=== PATIENT | male | born 1955 | race Caucasian/White ===

== ENCOUNTER 2021-04-21 10:34 | Inpatient (IN) ==
[2021-04-21] MEDS ORDERED: LABETALOL HCL IV 5 MG/ML 20ML IV STA ×2 (10:47→11:18)
[2021-04-21] MEDS ORDERED: OPTIRAY 320 125ml IV ONE ×2 (10:56→13:22)
--- NOTE | 2021-04-21 10:58 | Emergency Department Note ---
History of Present Illness General Chief complaint: Eye Problems Stated complaint: LOSS OF VISION IN R EYE/REFERRED BY EYE DR Time Seen by Provider: 04/21/21 10:44 Source: patient and RN notes reviewed Mode of arrival: ambulatory Limitations: no limitations History of Present Illness Provider Complaint: + vision change (R eye pain) Duration: + constant Location: + right eye Eye Symptoms: + decreased vision (woke up at 7 am and noticed decreased vision) Place: + home Associated symptoms: + none HPI Narrative: Went to bed ok at 10 pm, woke up at 7 am with decreased vision in R eye. Hasn't seen a doctor in years. No daily meds Smokes 3 cigarettes daily Home Medications Medication Instructions Recorded Confirmed Type No Known Home Medications 04/21/21 04/21/21 History Allergies Allergy/AdvReac Type Severity Reaction Status Date / Time No Known Allergies Allergy Unverified 12/11/11 09:54 Past Med/Surg History Medical History No significant past medical history Surgical History History of thoracentesis Family History Mother Alive and well Father Alive and well Denies family history of Diabetes Myocardial infarction Cancer Stroke Social History Smoking Status: Current some day smoker Years Smoked: 30; Cigarettes Per Day: 5; Hx Alcohol Use: Yes Alcohol type: beer Alcohol type Comment: 3 beers day Hx Substance Use: No Preferred Language: [place] Communication Ability: Effective Oil [employer] Required: No Beliefs That Will Affect Care: None marital status: Single Current Living Situation: Significant Other Other Information That Helps Us Care for You: No Feels Safe at Home: Yes Safety Concerns: Feels Safe At This Time Assistive Devices: None Review of Systems See HPI for pertinent positives & negatives. and A total of 10 systems reviewed and were otherwise negative Physical Exam Vital Signs: Vital Signs - 24 hr 04/21/21 10:37 04/21/21 11:04 04/21/21 11:09 Temperature 36.5 C Temperature Source Temporal Artery Sc an Pulse Rate 111 H 99 H Pulse Rate [Left A pical] 123 H Respiratory Rate 18 20 16 Respiratory Effort / Characteristics Non-Labored Non-Labored Sponta neous Respiratory Depth Normal Normal Respiratory Patter n Regular Blood Pressure 257/112 H 223/127 H Blood Pressure [Le ft Arm] 259/151 H Blood Pressure Cece n 160 159 Blood Pressure Cece n [Left Arm] 187 Blood Pressure Pos ition [Left Arm] Lying Pulse Oximetry 97 93 92 Oxygen Delivery Me thod Room Air Room Air Sepsis Recent Feve r Within 48 Hours No Sepsis New/Unexpla ined Change in Men zain Status No Sepsis Action Take n by Nursing No Action Required 04/21/21 11:10 04/21/21 11:15 04/21/21 11:20 Temperature Temperature Source Pulse Rate 100 H 102 H 101 H Pulse Rate [Left A pical] Respiratory Rate 20 18 17 Respiratory Effort / Characteristics Respiratory Depth Respiratory Patter n Blood Pressure 228/117 H 234/138 H 227/130 H Blood Pressure [Le ft Arm] Blood Pressure Cece n 154 170 162 Blood Pressure Cece n [Left Arm] Blood Pressure Pos ition [Left Arm] Pulse Oximetry 93 93 93 Oxygen Delivery Me thod Sepsis Recent Feve r Within 48 Hours Sepsis New/Unexpla ined Change in Men zain Status Sepsis Action Take n by Nursing 04/21/21 11:25 04/21/21 11:30 04/21/21 11:35 Temperature Temperature Source Pulse Rate 105 H 91 H 90 Pulse Rate [Left A pical] Respiratory Rate 18 20 22 Respiratory Effort / Characteristics Respiratory Depth Respiratory Patter n Blood Pressure 235/130 H 202/131 H 203/117 H Blood Pressure [Le ft Arm] Blood Pressure Cece n 165 154 145 Blood Pressure Cece n [Left Arm] Blood Pressure Pos ition [Left Arm] Pulse Oximetry 93 91 92 Oxygen Delivery Me thod Sepsis Recent Feve r Within 48 Hours Sepsis New/Unexpla ined Change in Men zain Status Sepsis Action Take n by Nursing 04/21/21 11:40 04/21/21 11:45 04/21/21 11:50 Temperature Temperature Source Pulse Rate 92 H 93 H 93 H Pulse Rate [Left A pical] Respiratory Rate 22 21 20 Respiratory Effort / Characteristics Respiratory Depth Respiratory Patter n Blood Pressure 206/117 H 211/118 H 211/116 H Blood Pressure [Le ft Arm] Blood Pressure Cece n 146 149 147 Blood Pressure Cece n [Left Arm] Blood Pressure Pos ition [Left Arm] Pulse Oximetry 92 92 93 Oxygen Delivery Me thod Sepsis Recent Feve r Within 48 Hours Sepsis New/Unexpla ined Change in Men zain Status Sepsis Action Take n by Nursing 04/21/21 11:55 04/21/21 12:00 04/21/21 12:05 Temperature Temperature Source Pulse Rate 94 H 95 H 92 H Pulse Rate [Left A pical] Respiratory Rate 18 19 17 Respiratory Effort / Characteristics Respiratory Depth Respiratory Patter n Blood Pressure 207/117 H 216/120 H 194/109 H Blood Pressure [Le ft Arm] Blood Pressure Cece n 147 152 137 Blood Pressure Cece n [Left Arm] Blood Pressure Pos ition [Left Arm] Pulse Oximetry 92 93 92 Oxygen Delivery Me thod Sepsis Recent Feve r Within 48 Hours Sepsis New/Unexpla ined Change in Men zain Status Sepsis Action Take n by Nursing 04/21/21 12:10 04/21/21 12:15 04/21/21 12:27 Temperature Temperature Source Pulse Rate 92 H 95 H 91 H Pulse Rate [Left A pical] Respiratory Rate 20 20 20 Respiratory Effort / Characteristics Respiratory Depth Respiratory Patter n Blood Pressure 197/105 H 224/125 H 209/115 H Blood Pressure [Le ft Arm] Blood Pressure Cece n 135 158 146 Blood Pressure Cece n [Left Arm] Blood Pressure Pos ition [Left Arm] Pulse Oximetry 93 92 93 Oxygen Delivery Me thod Sepsis Recent Feve r Within 48 Hours Sepsis New/Unexpla ined Change in Men zain Status Sepsis Action Take n by Nursing 04/21/21 12:30 04/21/21 12:40 Temperature Temperature Source Pulse Rate 93 H 85 Pulse Rate [Left A pical] Respiratory Rate 24 20 Respiratory Effort / Characteristics Respiratory Depth Respiratory Patter n Blood Pressure 197/113 H 184/101 H Blood Pressure [Le ft Arm] Blood Pressure Cece n 141 128 Blood Pressure Cece n [Left Arm] Blood Pressure Pos ition [Left Arm] Pulse Oximetry 92 92 Oxygen Delivery Me thod Sepsis Recent Feve r Within 48 Hours Sepsis New/Unexpla ined Change in Men zain Status Sepsis Action Take n by Nursing Physical Exam: PHYSICAL EXAM: Vital signs reviewed. Noted to be markedly HTN General: Well-appearing 65 yo male, in no significant distress. HEENT: No scleral icterus, PERRLA, neck supple. Atraumatic. Limited funduscopic exam performed bilaterally and within normal limits. Patient does have difficulty tracking with extreme left peripheral gaze. Cardiovascular: tachycardic rate, regular rhythm, no extra sounds. Pulmonary: Clear to auscultation bilaterally, normal work of breathing. Abdomen: Soft, nontender, nondistended, positive bowel sounds. Musculoskeletal: Atraumatic, no peripheral edema. Neurologic: Patient awake alert and oriented x 3, speech is clear. Equal strength in all 4 extremities. Cranial nerves II through XII are grossly intact. Skin: Warm, dry, no rash Course Administered Medications Folic Acid (Folic Acid 1 Mg Tab) 1 mg PO [facility] Stop: 05/21/21 14:35 Last Admin: 04/21/21 15:35 Dose: 1 mg Documented by: [id number] Nicardipine HCl 25 mg/ Sodium (Chloride) 250 mls @ 25 mls/hr IV .Q10H [facility]; Protocol Stop: 05/21/21 12:59 Last Titration: 04/21/21 14:58 Dose: 2.5 mg/hr, 25 mls/hr Documented by: [id number] Titration: 04/21/21 14:01 Dose: 0 mg/hr, 0 mls/hr Documented by: [id number] Admin: 04/21/21 13:41 Dose: 5 mg/hr, 50 mls/hr Documented by: [id number] Cosigned by: [id number] Thiamine HCl (Thiamine Hcl 100 Mg Tab) 100 mg PO [facility] Stop: 05/21/21 14:35 Last Admin: 04/21/21 15:35 Dose: 100 mg Documented by: [id number] Discontinued Medications Aspirin (Aspirin Chew 324 Mg) 324 mg PO NOW STA Stop: 04/21/21 12:17 Last Admin: 04/21/21 12:27 Dose: 324 mg Documented by: [id number] Ioversol (Optiray 320 125ml) 120 ml IV ONCE ONE Stop: 04/21/21 10:57 Last Admin: 04/21/21 10:57 Dose: 120 ml Documented by: [id number] Ioversol (Optiray 320 125ml) 120 ml IV ONCE ONE Stop: 04/21/21 13:23 Last Admin: 04/21/21 13:22 Dose: 120 ml Documented by: [id number] Labetalol HCl (Labetalol Hcl Iv 5 Mg/Ml 20ml) 10 mg IV NOW STA Stop: 04/21/21 10:48 Last Admin: 04/21/21 11:05 Dose: 10 mg Documented by: [id number] Cosigned by: [id number] Labetalol HCl (Labetalol Hcl Iv 5 Mg/Ml 20ml) 20 mg IV NOW STA Stop: 04/21/21 11:19 Last Admin: 04/21/21 11:23 Dose: 20 mg Documented by: [id number] Cosigned by: [id number] Labetalol HCl (Labetalol Hcl Iv 5 Mg/Ml 20ml) 20 mg IV NOW STA Stop: 04/21/21 12:24 Last Admin: 04/21/21 12:35 Dose: 10 mg Documented by: [id number] Cosigned by: [id number] Medical Decision Making Differential Diagnosis Infection, dehydration, metabolic abnormality, hypo/hyperglycemia, electrolyte disturbance, anemia, hypoxia, cardiac sources, intracerebral event, toxicologic, neurologic, as well as other pathologies. Medical Records Attestation: I reviewed the patient's medical records. Home Medications Current Medication List: was personally reviewed by me Laboratory Data Attestation: I reviewed the patient's lab results. Result diagrams: 04/21/21 11:06 04/21/21 11:06 Lab Results 04/21/21 04/21/21 04/21/21 Range/Units 11:06 11:06 11:06 WBC 10.24 (4.8-10.8) K/uL RBC 5.33 (4.7-6.1) M/uL Hgb 17.2 (14.0-18.0) g/dL Hct 49.4 (42-52) % MCV 92.7 (80-100) fL MCH 32.3 (25-34) pg MCHC 34.8 (32-36) g/dL RDW Std Deviation 47.4 H (36.4-46.3) fL RDW Coeff of Xochitl 13.9 (11.5-14.5) % Plt Count 167 (130-400) K/uL MPV 9.2 (7.4-10.4) fL PT 10.9 (9.0-12.0) Seconds INR 1.1 (0.9-1.1) APTT 28.1 (21.0-31.0) Seconds PTT Ratio 1.1 Sodium 130 L (136-145) mmol/L Potassium 4.5 (3.5-5.1) mmol/L Chloride 102 (98-107) mmol/L Carbon Dioxide 21 (21-32) mmol/L Anion Gap 7 (3-11) BUN 11 (6-23) mg/dl Creatinine 0.73 (0.6-1.4) mg/dl Est Cr Clr Drug Dosing 128.1 ml/min Est GFR ( Amer) 113.6 ml/min Est GFR (Non-Af Amer) 98.0 ml/min BUN/Creatinine Ratio 15.1 (10-20) Glucose 126 H (70-99(Fasting)) mg/dl Osmolality (280-300) mOsm/kg Calcium 8.8 (8.5-10.1) mg/dl Magnesium 1.9 (1.7-2.4) mg/dl Total Bilirubin 0.7 (0.2-1.0) mg/dl AST 69 H (13-39) U/L ALT 37 (7-52) U/L Alkaline Phosphatase 52 (34-104) U/L Troponin I (0-0.04) ng/ml Total Protein 7.2 (6.0-8.3) gm/dl Albumin 4.2 (3.4-5.0) gm/dl Globulin 3.0 (2.5-4.0) gm/dl Albumin/Globulin Ratio 1.4 (0.9-2) TSH (0.300-4.500) uIu/ml Urine Color Urine Appearance (Clear) Urine pH (4.5-7.5) Ur Specific [place] (1.000-1.030) Urine Protein (Negative) Urine Glucose (UA) (Negative) Urine Ketones (Negative) Urine Blood (Negative) Urine Nitrite (Negative) Urine Bilirubin (Negative) Urine Urobilinogen (Negative) Ur Leukocyte Esterase (Negative) Urine WBC (Auto) (0-5) /hpf Urine RBC (Auto) (0-4) /hpf U Hyaline Cast (Auto) (0-5) /lpf U Epithel Cells (Auto) (0-5) /lpf Urine Bacteria (Auto) (Negative) Urine Osmolality (500-800) mOsm/kg Ur Random Sodium mmol/L SARS-CoV-2, RNA, NAAT (NEGATIVE) 04/21/21 04/21/21 04/21/21 Range/Units 11:06 11:06 11:09 WBC (4.8-10.8) K/uL RBC (4.7-6.1) M/uL Hgb (14.0-18.0) g/dL Hct (42-52) % MCV (80-100) fL MCH (25-34) pg MCHC (32-36) g/dL RDW Std Deviation (36.4-46.3) fL RDW Coeff of Xochitl (11.5-14.5) % Plt Count (130-400) K/uL MPV (7.4-10.4) fL PT (9.0-12.0) Seconds INR (0.9-1.1) APTT (21.0-31.0) Seconds PTT Ratio Sodium (136-145) mmol/L Potassium (3.5-5.1) mmol/L Chloride (98-107) mmol/L Carbon Dioxide (21-32) mmol/L Anion Gap (3-11) BUN (6-23) mg/dl Creatinine (0.6-1.4) mg/dl Est Cr Clr Drug Dosing ml/min Est GFR ( Amer) ml/min Est GFR (Non-Af Amer) ml/min BUN/Creatinine Ratio (10-20) Glucose (70-99(Fasting)) mg/dl Osmolality 289 (280-300) mOsm/kg Calcium (8.5-10.1) mg/dl Magnesium (1.7-2.4) mg/dl Total Bilirubin (0.2-1.0) mg/dl AST (13-39) U/L ALT (7-52) U/L Alkaline Phosphatase (34-104) U/L Troponin I 7.17 H* (0-0.04) ng/ml Total Protein (6.0-8.3) gm/dl Albumin (3.4-5.0) gm/dl Globulin (2.5-4.0) gm/dl Albumin/Globulin Ratio (0.9-2) TSH 2.478 (0.300-4.500) uIu/ml Urine Color Urine Appearance (Clear) Urine pH (4.5-7.5) Ur Specific [place] (1.000-1.030) Urine Protein (Negative) Urine Glucose (UA) (Negative) Urine Ketones (Negative) Urine Blood (Negative) Urine Nitrite (Negative) Urine Bilirubin (Negative) Urine Urobilinogen (Negative) Ur Leukocyte Esterase (Negative) Urine WBC (Auto) (0-5) /hpf Urine RBC (Auto) (0-4) /hpf U Hyaline Cast (Auto) (0-5) /lpf U Epithel Cells (Auto) (0-5) /lpf Urine Bacteria (Auto) (Negative) Urine Osmolality (500-800) mOsm/kg Ur Random Sodium mmol/L SARS-CoV-2, RNA, NAAT (NEGATIVE) 04/21/21 04/21/21 04/21/21 Range/Units 12:00 12:00 12:00 WBC (4.8-10.8) K/uL RBC (4.7-6.1) M/uL Hgb (14.0-18.0) g/dL Hct (42-52) % MCV (80-100) fL MCH (25-34) pg MCHC (32-36) g/dL RDW Std Deviation (36.4-46.3) fL RDW Coeff of Xochitl (11.5-14.5) % Plt Count (130-400) K/uL MPV (7.4-10.4) fL PT (9.0-12.0) Seconds INR (0.9-1.1) APTT (21.0-31.0) Seconds PTT Ratio Sodium (136-145) mmol/L Potassium (3.5-5.1) mmol/L Chloride (98-107) mmol/L Carbon Dioxide (21-32) mmol/L Anion Gap (3-11) BUN (6-23) mg/dl Creatinine (0.6-1.4) mg/dl Est Cr Clr Drug Dosing ml/min Est GFR ( Amer) ml/min Est GFR (Non-Af Amer) ml/min BUN/Creatinine Ratio (10-20) Glucose (70-99(Fasting)) mg/dl Osmolality (280-300) mOsm/kg Calcium (8.5-10.1) mg/dl Magnesium (1.7-2.4) mg/dl Total Bilirubin (0.2-1.0) mg/dl AST (13-39) U/L ALT (7-52) U/L Alkaline Phosphatase (34-104) U/L Troponin I (0-0.04) ng/ml Total Protein (6.0-8.3) gm/dl Albumin (3.4-5.0) gm/dl Globulin (2.5-4.0) gm/dl Albumin/Globulin Ratio (0.9-2) TSH (0.300-4.500) uIu/ml Urine Color Yellow Urine Appearance Clear (Clear) Urine pH 7.0 (4.5-7.5) Ur Specific [place] > 1.045 H (1.000-1.030) Urine Protein Negative (Negative) Urine Glucose (UA) Negative (Negative) Urine Ketones Negative (Negative) Urine Blood Trace H (Negative) Urine Nitrite Negative (Negative) Urine Bilirubin Negative (Negative) Urine Urobilinogen Negative (Negative) Ur Leukocyte Esterase Negative (Negative) Urine WBC (Auto) 0 (0-5) /hpf Urine RBC (Auto) 0-4 (0-4) /hpf U Hyaline Cast (Auto) 0 (0-5) /lpf U Epithel Cells (Auto) 0-5 (0-5) /lpf Urine Bacteria (Auto) Negative (Negative) Urine Osmolality 466 L (500-800) mOsm/kg Ur Random Sodium 73 mmol/L SARS-CoV-2, RNA, NAAT (NEGATIVE) 04/21/21 Range/Units 12:14 WBC (4.8-10.8) K/uL RBC (4.7-6.1) M/uL Hgb (14.0-18.0) g/dL Hct (42-52) % MCV (80-100) fL MCH (25-34) pg MCHC (32-36) g/dL RDW Std Deviation (36.4-46.3) fL RDW Coeff of Xochitl (11.5-14.5) % Plt Count (130-400) K/uL MPV (7.4-10.4) fL PT (9.0-12.0) Seconds INR (0.9-1.1) APTT (21.0-31.0) Seconds PTT Ratio Sodium (136-145) mmol/L Potassium (3.5-5.1) mmol/L Chloride (98-107) mmol/L Carbon Dioxide (21-32) mmol/L Anion Gap (3-11) BUN (6-23) mg/dl Creatinine (0.6-1.4) mg/dl Est Cr Clr Drug Dosing ml/min Est GFR ( Amer) ml/min Est GFR (Non-Af Amer) ml/min BUN/Creatinine Ratio (10-20) Glucose (70-99(Fasting)) mg/dl Osmolality (280-300) mOsm/kg Calcium (8.5-10.1) mg/dl Magnesium (1.7-2.4) mg/dl Total Bilirubin (0.2-1.0) mg/dl AST (13-39) U/L ALT (7-52) U/L Alkaline Phosphatase (34-104) U/L Troponin I (0-0.04) ng/ml Total Protein (6.0-8.3) gm/dl Albumin (3.4-5.0) gm/dl Globulin (2.5-4.0) gm/dl Albumin/Globulin Ratio (0.9-2) TSH (0.300-4.500) uIu/ml Urine Color Urine Appearance (Clear) Urine pH (4.5-7.5) Ur Specific [place] (1.000-1.030) Urine Protein (Negative) Urine Glucose (UA) (Negative) Urine Ketones (Negative) Urine Blood (Negative) Urine Nitrite (Negative) Urine Bilirubin (Negative) Urine Urobilinogen (Negative) Ur Leukocyte Esterase (Negative) Urine WBC (Auto) (0-5) /hpf Urine RBC (Auto) (0-4) /hpf U Hyaline Cast (Auto) (0-5) /lpf U Epithel Cells (Auto) (0-5) /lpf Urine Bacteria (Auto) (Negative) Urine Osmolality (500-800) mOsm/kg Ur Random Sodium mmol/L SARS-CoV-2, RNA, NAAT NEGATIVE (NEGATIVE) Imaging Data Radiologist's Impression: Head CT 04/21/21 10:40 CT angio neck with con, CT angio head w con, CT head/brain wo con CLINICAL HISTORY: stroke TECHNIQUE: Contiguous axial CT images of the head were acquired from the base of the skull to the vertex without intravenous contrast administration. CT a ngiography of the head and neck was performed following intravenous administration of iodinated contrast. Coronal and sagittal MIPS were obtained from the axial data set and were submitted for review. Automated dose lowering techniques and/or adjustment according to patient size were utilized for this examination. All measurements were calculated based on NASCET criteria. Comparison: None available at the time of this dictation. FINDINGS: CT head: Areas of decreased attenuation are present in the periventricular and subcortical white matter bilaterally consistent with small vessel ischemic disease. Generalized cerebral atrophy with commensurate enlargement of the ventricles, sulci, and cisterns is also present. There is no acute intracranial hemorrhage or evidence of acute territorial infarction. No shift of the midline structures, mass effect, or extra-axial abnormalities are shown. Atherosclerotic calcifications are present in the intracranial segments of the internal carotid arteries. Lungs and soft tissues are unremarkable. CTA Neck: A 3 vessel aortic arch is shown. Atherosclerotic plaque is present in the aortic arch and at the origin of the great vessels. There is abrupt narrowing of the right vertebral artery at the level of PICA. There is significant narrowing of the left vertebral artery at the level of C5-C6. The common carotid, external carotid, cervical segments of the internal carotid arteries, and the cervical segments of the vertebral arteries are patent without hemodynamically significant stenosis. The left vertebral artery is dominant. CTA Head: The anterior and posterior cerebral circulations are patent. No hemodynamically significant stenosis, aneurysm, dissection, or arteriovenous malformation is shown. Atherosclerotic disease is noted. IMPRESSION: 1. No acute intracranial hemorrhage, evidence of acute territorial infarction, or other acute intracranial disease process. 2. No occlusion, hemodynamically significant stenosis, aneurysm, dissection, or arteriovenous malformation in the major intracranial arteries. 3. Bilateral vertebral artery stenosis, on the left at the level of C5-C6 and on the right at the level of PICA. Assessment of stenosis of the internal carotid arteries is based on NASCET criteria. ACT 112: Negative or not required by law. Electronically signed by: Allan Gu M.D. 04/21/2021 11:39 AM Head CTA 04/21/21 10:44 CT angio neck with con, CT angio head w con, CT head/brain wo con CLINICAL HISTORY: stroke TECHNIQUE: Contiguous axial CT images of the head were acquired from the base of the skull to the vertex without intravenous contrast administration. CT angiography of the head and neck was performed following intravenous administration of iodinated contrast. Coronal and sagittal MIPS were obtained from the axial data set and were submitted for review. Automated dose lowering techniques and/or adjustment according to patient size were utilized for this examination. All measurements were calculated based on NASCET criteria. Comparison: None available at the time of this dictation. FINDINGS: CT head: Areas of decreased attenuation are present in the periventricular and subcortical white matter bilaterally consistent with small vessel ischemic disease. Generalized cerebral atrophy with commensurate enlargement of the jens tricles, sulci, and cisterns is also present. There is no acute intracranial hemorrhage or evidence of acute territorial infarction. No shift of the midline structures, mass effect, or extra-axial abnormalities are shown. Atherosclerotic calcifications are present in the intracranial segments of the internal carotid arteries. Lungs and soft tissues are unremarkable. CTA Neck: A 3 vessel aortic arch is shown. Atherosclerotic plaque is present in the aortic arch and at the origin of the great vessels. There is abrupt narrowing of the right vertebral artery at the level of PICA. There is si gnificant narrowing of the left vertebral artery at the level of C5-C6. The common carotid, external carotid, cervical segments of the internal carotid arteries, and the cervical segments of the vertebral arteries are patent without hemodynamically significant stenosis. The left vertebral artery is dominant. CTA Head: The anterior and posterior cerebral circulations are patent. No hemodynamically significant stenosis, aneurysm, dissection, or arteriovenous malformation is shown. Atherosclerotic disease is noted. IMPRESSION: 1. No acute intracranial hemorrhage, evidence of acute territorial infarction, or other acute intracranial disease process. 2. No occlusion, hemodynamically significant stenosis, aneurysm, dissection, or arteriovenous malformation in the major intracranial arteries. 3. Bilateral vertebral artery stenosis, on the left at the level of C5-C6 and on the right at the level of PICA. Assessment of stenosis of the internal carotid arteries is based on NASCET criteria. ACT 112: Negative or not required by law. Electronically signed by: Allan Gu M.D. 04/21/2021 11:39 AM Neck CTA 04/21/21 10:44 CT angio neck with con, CT angio head w con, CT head/brain wo con CLINICAL HISTORY: stroke TECHNIQUE: Contiguous axial CT images of the head were acquired from the base of the skull to the vertex without intravenous contrast administration. CT angiography of the head and neck was performed following intravenous ad ministration of iodinated contrast. Coronal and sagittal MIPS were obtained from the axial data set and were submitted for review. Automated dose lowering techniques and/or adjustment according to patient size were utilized for this examination. All measurements were calculated based on NASCET criteria. Comparison: None available at the time of this dictation. FINDINGS: CT head: Areas of decreased attenuation are present in the periventricular and subcortical white matter bilaterally consistent with small vessel ischemic disease. Generalized cerebral atrophy with commensurate enlargement of the ventricles, sulci, and cisterns is also present. There is no acute intracranial hemorrhage or evidence of acute territorial infarction. No shift of the midline structures, mass effect, or extra-axial abnormalities are shown. Atherosclerotic calcifications are present in the intracranial segments of the internal carotid arteries. Lungs and soft tissues are unremarkable. CTA Neck: A 3 vessel aortic arch is shown. Atherosclerotic plaque is present in the aortic arch and at the origin of the great vessels. There is abrupt narrowing of the right vertebral artery at the level of PICA. There is significant narrowing of the left vertebral artery at the level of C5-C6. The common carotid, external carotid, cervical segments of the internal carotid arteries, and the cervical segments of the vertebral arteries are patent without hemodynamically significant stenosis. The left vertebral artery is dominant. CTA Head: The anterior and posterior cerebral circulations are patent. No hemodynamically significant stenosis, aneurysm, dissection, or arteriovenous malformation is shown. Atherosclerotic disease is noted. IMPRESSION: 1. No acute intracranial hemorrhage, evidence of acute territorial infarction, or other acute intracranial disease process. 2. No occlusion, hemodynamically significant stenosis, aneurysm, dissection, or arteriovenous malformation in the major intracranial arteries. 3. Bilateral vertebral artery stenosis, on the left at the level of C5-C6 and on the right at the level of PICA. Assessment of stenosis of the internal carotid arteries is based on NASCET criteria. ACT 112: Negative or not required by law. Electronically signed by: Allan Gu M.D. 04/21/2021 11:39 AM Brain MRI 04/21/21 12:16 MR brain wo con CLINICAL HISTORY: [facility] sx, R vision loss, HTN TECHNIQUE: Multiplanar and multisequence MR images of the brain were obtained without intravenous contrast. Comparison: Comparison is made to CT head 02/18/2022 FINDINGS: No abnormal restricted diffusion is identified. Foci of T2 and FLAIR hyperintensity are noted in the paraventricular areas consistent with chronic small vessel ischemic disease. Ex vacuo ventriculomegaly and sulcal enlargement is noted compatible with diffuse encephalomalacia. No extra axial fluid collections are seen. There are no masses, mass effect, or midline shift. The corpus callosum, pituitary gland, and cerebellar tonsils appear grossly unremarkable. Flow voids of the major intracranial arterial vessels are identified. The imaged portions of the paranasal sinuses, mastoid air cells, and orbits are unremarkable. IMPRESSION: No acute abnormalities. ACT 112: Negative or not required by law. Electronically signed by: Allan Gu M.D. 04/21/2021 1:[address] angio abdomen pelvis w con CLINICAL HISTORY: dissection TECHNIQUE: Multidetector row helical CT of the abdomen and pelvis was performed, following intravenous administration of iodinated contrast. No oral contrast was administered. Automated dose lowering techniques and/or adjustment according to patient size were utilized for this exam. Coronal and sagittal reformations were obtained. MIP and 3D volume rendered reconstructions were obtained. Comparison: Comparison is made to CT abdomen pelvis 12/11/2011 FINDINGS: Lower chest: For findings above the diaphragm, please see CT chest performed same day. Liver: Hepatic steatosis is noted. Gallbladder and biliary tree: No calcified gallstones. Normal caliber wall. No intra- or extrahepatic biliary ductal dilation. Pancreas: Unremarkable, no focal lesions. Spleen: Splenule is incidentally noted. Adrenals: Stable right adrenal nodule.. Kidneys and ureters: Unremarkable. Bladder: Unremarkable. Reproductive organs: Prostatomegaly is seen. Bowel: Diverticulosis is seen without evidence of diverticulitis. A hiatal hernia is seen. The appendix is normal. Lymph nodes Retroperitoneal: Unremarkable. Mesenteric: Unremarkable. Pelvic: Unremarkable. Peritoneum: Normal. Abdominal wall: Unremarkable. Bones: Degenerative changes in the visualized spine. Scoliosis is seen. 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 angiogram: There is an infrarenal abdominal aortic aneurysm measuring 28 mm in diameter. Atherosclerotic disease is seen. There is no evidence of dissection. Stat The origins of the celiac axis, superior mesenteric, inferior mesenteric and bilateral renal arteries are patent. IMPRESSION: 1. No evidence of dissection. 2. 28 mm infrarenal abdominal aortic aneurysm. Atherosclerotic disease is seen. 3. Stable right adrenal nodule from 2011. 4. Hepatic steatosis. 5. Additional findings as above. ACT 112: Negative or not required by law. Electronically signed by: Allan Gu M.D. 04/21/2021 1:51 PM Dictated:04/21/21 1340 Transcribed: 04/21/21 1340 CLINICAL HISTORY: cvs sx, R vision loss, HTN TECHNIQUE: Multiplanar and multisequence MR images of the brain were obtained without intravenous contrast. Comparison: Comparison is made to CT head 02/18/2022 FINDINGS: No abnormal restricted diffusion is identified. Foci of T2 and FLAIR hyperintensity are noted in the paraventricular areas consistent with chronic small vessel ischemic disease. Ex vacuo ventriculomegaly and sulcal enlargement is noted compatible with diffuse encephalomalacia. No extra axial fluid collections are seen. There are no masses, mass effect, or midline shift. The corpus callosum, pituitary gland, and cerebellar tonsils appear grossly unremarkable. Flow voids of the major intracranial arterial vessels are identified. The imaged portions of the paranasal sinuses, mastoid air cells, and orbits are unremarkable. IMPRESSION: No acute abnormalities. ACT 112: Negative or not required by law. Electronically signed by: Allan Gu M.D. 04/21/2021 1:23 PM Dictated:04/21/217 Transcribed: 04/21/211316 CT angio chest dissec wo/w con CLINICAL HISTORY: dissection TECHNIQUE: Multidetector row helical CT of the chest was performed before and after injection of IV contrast. Coronal and sagittal reformations were obtained. Automated dose lowering techniques and/or adjustment according to patient size were utilized for this exam. Comparison: None available at the time of this dictation. FINDINGS: Lungs and pleura: Diffuse smooth interlobular septal thickening is seen most prominent at the lung bases and apices. Heart and pericardium: Heart size is normal. No pericardial effusion. Vessels: The pulmonary trunk is enlarged measuring 33 mm. No evidence of acute aortic injury. Mediastinum and margot: Subcentimeter lymph nodes are seen. Chest wall and lower neck: Unremarkable. Abdomen: For findings below the diaphragm, please refer to CT of the abdomen dated the same. Bones: Degenerative changes in the thoracic spine. IMPRESSION: 1. No acute abnormality and in particular no evidence of acute aortic injury. 2. Pulmonary hypertension. Mild to moderate pulmonary edema. ACT 112: Negative or not required by law. Electronically signed by: Allan Gu M.D. 04/21/2021 1:40 PM Dictated:04/21/21 1338 Transcribed: 04/21/211337 ECG Data Attestation: I personally reviewed and interpreted this ECG as follows: Additional Comments: Sinus tachycardia at 102 bpm.left atrial enlargement, T wave inversions laterally. No PVC, no PAC. QTc is 458. Normal ST segments. Blood Pressure Blood Pressure Findings: Elevated blood pressure Blood Pressure Disposition: further management by hospitalist ARTHUR Narrative This patient was evaluated and appeared to be in no significant distress. Physical examination was performed and reveals no focal neurologic deficit. The right eye visual field cut is concerning however the patient remains tachycardic and hypertensive of unclear etiology. The patient was medicated with labetalol 10 mg IV with minimal effect. This was repeated with 20 mg with modest improvement. Patient has likely been hypertensive for many months if not longer and therefore the goal was to not drop his MAP more than 20%. Patient did r equire an additional 10 mg of IV labetalol. CT imaging of the head was performed with CT angios of the head and neck. These are largely negative with the exception of bilateral vertebral stenosis but no evidence of focal occlusion. MRI of the brain was performed without contrast and is negative for acute abnormality. Neurology stroke attending at [facility] was consulted and requested blood pressure management to keep the systolic blood pressure under 180, gradually getting over the next 24 hours. She also requested aspirin 324 mg now then 81 mg daily thereafter. Patient was then found to have an elevated troponin at 7.17. EKG revealed T wave inversions in the lateral leads but no evidence of ST elevation. CT imaging of the chest, abdomen and pelvis was performed to rule out dissection. This study is negative for acute aortic abnormality, and adrenal nodule is noted. Patient's case was discussed with the [facility], Ashly Baez PA-C and Dr. Boswell, who was given handoff at the bedside. Please see her notes for further details of the history, physical visit. Impression & Plan Hypertensive emergency, Vision loss, right eye, Elevated troponin, Abnormal EKG, Tachycardia Critical Care Time Critical Care Time: Yes Total Critical Care Time: 75 I have personally spent greater than 75 minutes of critical care time in the direct management of this patient. This includes bedside care, interpretation of diagnostic studies, and testing, discussion with consultants, patient, and family members, and other required patient management activities. This 75 minutes is in excess of all separately billable procedures. Discharge Plan Visit Data Chief Complaint: Eye Problems Stated Complaint: LOSS OF VISION IN R EYE/REFERRED BY EYE DR ED Provider: Samira Wilkins Discharge Problem: Hypertensive emergency, Vision loss, right eye, Elevated troponin, Abnormal EKG, Tachycardia Patient Disposition: Admitted As Inpatient Discharge Instructions Interventions: ED Discharge Assessment Last Done: 04/21/21 14:08
[2021-04-21 11:15] LABS: Hematocrit (blood only) 49.4 % (42-52); Hemoglobin 17.2 g/dL (14.0-18.0); Mean Corpuscular Hemoglobin 32.3 pg (25-34); Mean Corpuscular Hgb Conc 34.8 g/dL (32-36); Mean Corpuscular Volume 92.7 fL (80-100); Mean Platelet Volume 9.2 fL (7.4-10.4); Platelet Count 167 K/uL (130-400); RDW Coefficient of Variation 13.9 % (11.5-14.5); RDW Standard Deviation 47.4 fL (36.4-46.3); Red Blood Count 5.33 M/uL (4.7-6.1); White Blood Count 10.24 K/uL (4.8-10.8)
[2021-04-21 11:27] LABS: INR 1.1 (0.9-1.1); Partial Thromboplastin Ratio 1.1; Partial Thromboplastin Time 28.1 Seconds (21.0-31.0); Prothrombin Time 10.9 Seconds (9.0-12.0)
[2021-04-21 11:38] LABS: Albumin Globulin Ratio 1.4 (0.9-2); Albumin Level 4.2 gm/dl (3.4-5.0); BUN Creatinine Ratio 15.1 (10-20); Bilirubin,Total 0.7 mg/dl (0.2-1.0); Calcium 8.8 mg/dl (8.5-10.1); Creatinine Clr Calc Pharmacy 128.1 ml/min; Est GFR (African American) 113.6 ml/min; Magnesium 1.9 mg/dl (1.7-2.4); Potassium 4.5 mmol/L (3.5-5.1); Total Protein 7.2 gm/dl (6.0-8.3)
--- NOTE | 2021-04-21 11:40 | CT Scan Report ---
CT angio neck with con, CT angio head w con, CT head/brain wo con CLINICAL HISTORY: stroke TECHNIQUE: Contiguous axial CT images of the head were acquired from the base of the skull to the tamera abdelrahman without intravenous contrast administration. CT angiography of the head and neck was performed f ollowing intravenous administration of iodinated contrast. Coronal and sagittal MIPS were obtained fr om the axial data set and were submitted for review. Automated dose lowering techniques and/or adjus tment according to patient size were utilized for this examination. All measurements were calculated based on NASCET criteria. Comparison: None available at the time of this dictation. FINDINGS: CT head: Areas of decreased attenuation are present in the periventricular and subcortical white jone er bilaterally consistent with small vessel ischemic disease. Generalized cerebral atrophy with comme nsurate enlargement of the ventricles, sulci, and cisterns is also present. There is no acute intracr anial hemorrhage or evidence of acute territorial infarction. No shift of the midline structures, mas s effect, or extra-axial abnormalities are shown. Atherosclerotic calcifications are present in the intracranial segments of the internal carotid arteries. Lungs and soft tissues are unremarkable. CTA Neck: A 3 vessel aortic arch is shown. Atherosclerotic plaque is present in the aortic arch and at the origin of the great vessels. There is abrupt narrowing of the right vertebral artery at the le roxie of PICA. There is significant narrowing of the left vertebral artery at the level of C5-C6. The common carotid, external carotid, cervical segments of the internal carotid arteries, and the cervica l segments of the vertebral arteries are patent without hemodynamically significant stenosis. The lef t vertebral artery is dominant. CTA Head: The anterior and posterior cerebral circulations are patent. No hemodynamically significan t stenosis, aneurysm, dissection, or arteriovenous malformation is shown. Atherosclerotic disease is noted. IMPRESSION: 1. No acute intracranial hemorrhage, evidence of acute territorial infarction, or other acute intrac ranial disease process. 2. No occlusion, hemodynamically significant stenosis, aneurysm, dissection, or arteriovenous malfor mation in the major intracranial arteries. 3. Bilateral vertebral artery stenosis, on the left at the level of C5-C6 and on the right at the le roxie of PICA. Assessment of stenosis of the internal carotid arteries is based on NASCET criteria. ACT 112: Negative or not required by law. Electronically signed by: Allan Gu M.D. 04/21/2021 11:39 AM
[2021-04-21] MEDS ORDERED: ASPIRIN CHEW 324 MG PO STA (12:16)
[2021-04-21 12:21] LABS: Appearance Urine Clear (Clear); Bacteria Urine Automated Negative (Negative); Bilirubin Urine Negative (Negative); Blood Urine Trace (Negative); Cast Urine Automated 0 /lpf (0-5); Color Urine Yellow; Epithelial Cell Urine Auto 0-5 /lpf (0-5); Glucose Urine UA Negative (Negative); Ketones Urine Negative (Negative); Leukocyte Esterase Urine Negative (Negative); Nitrite Urine Negative (Negative); Protein Urine Negative (Negative); RBC Urine Automated 0-4 /hpf (0-4); Specific Gravity Urine > 1.045 (1.000-1.030); Urobilinogen Urine Negative (Negative); WBC Urine Automated 0 /hpf (0-5)
[2021-04-21] MEDS: LABETALOL HCL IV 5 MG/ML 20ML IV STA ×2 (12:30→12:35)
[2021-04-21] MEDS ORDERED: STAT IV Infusion **Titration per Protocol STA (12:46)
--- NOTE | 2021-04-21 13:05 | History & Physical Report ---
Date of Service April 21, 2021 Assessment & Plan (1) Vision loss, right eye: (2) Hypertensive emergency: (3) Elevated troponin: Plan: HTN Emergency Vision Loss, R eye admit to ICU Cardene gtt ordered Discussed with Dr. Gandhi for ICU management GOAL SBP 180, allow for permissive HTN in setting of ischemic CVA work up Further ischemic CVA w/u MRI pending - negative for CVA Echocardiogram:Moderate concentric LVH, asymmetric apical left ventricular hypertrophy, LVEF 66 5%, aortic valve is trileaflet, aortic valve is mildly calcified, mild aortic valve stenosis, grade 1 diastolic dysfunction, moderate to severe AR neurology consult received ASA 325mg in ED, will start 81mg daily tomorrow a1c, lipid panel in a.m. Ophthalmology consult Elevated troponin pt with t wave inversions w/o CP trop of 7.17 discussed with cardiology likely in setting of demand ischemia Obtain echocardiogram Cycle trops Cardiology to see patient Hyponatremia Na 130, likely chronic but unknown baseline urine studies ordered renal fxn intact, ? 2/2 to ETOH use Alcohol abuse drinks 3 beers/day thiamine, fa ordered AWSS prn protocol Infrarenal Abdominal Aortic Aneursym incidentally noted on CT a/p 2.8cm, will need OP follow up Tobacco abuse encourage cessation DVT ppx: SCD/TEDS for now, re assess in a.m. to initiate chemical ppx DISPO: ICU FULL CODE PCP: none Pt was seen and examined in collaboration with Dr. Boswell, please see addendum History of Present Illness Chief Complaint: R vision Loss since 7:00 a.m Primary Care Provider: NO PCP This is a 65-year-old male who has no known's significant past medical history who has not followed with PCP for many years who presents to ED secondary to vision loss in his right eye starting at 7 AM. He was last known well approximately 10 PM last evening when he went to bed. He states he was reading and felt like his normal self. When he woke up at 7 AM he had inability to see out of his right eye, except for light. He has not seen a PCP in many years. He is unaware of any known medical problems and does not take any prescription medications. Currently he continues to complain of visual loss in his right eye although he can see some objects and light. He denies any blurriness or double vision. He denies any headache. He denies any dizziness or lightheadedness. He does complain of feeling off balance and having difficulty walking but feels this is related to his vision loss in his right eye. He states he called his exterior door installer this morning who encouraged him to come to ED. He denies any recent illness. He is fully vaccinated for COVID-19. He denies any fever, chills, sweats, lightheadedness, dizziness, chest pain, shortness of breath, palpitations, cough, hemoptysis, nausea, vomiting, abdominal pain. He is a daily smoker approximately 5 cigarettes. He also drinks 3 beers a day. He denies any known significant family history and his mother and father are both still alive and well. He denies any history of cancer or stroke. He is unaware of family has high blood pressure or diabetes. In ED patient presented with significant hypertensive emergency with systolic blood pressure of 259. Stroke alert was called. Given time window TPA was not advised. He underwent CT of head and neck which revealed bilateral vertebral artery stenosis but otherwise no acute abnormality. CT head was unremarkable. Initial lab work-up revealed a troponin of 7.17. His EKG revealed sinus tachycardia with T wave inversions laterally. Allergies Allergy/AdvReac Type Severity Reaction Status Date / Time No Known Allergies Allergy Unverified 12/11/11 09:54 Home Medications Medication Instructions Recorded Confirmed Type No Known Home Medications 04/21/21 04/21/21 History Past Med/Surg History Medical History No significant past medical history Surgical History History of thoracentesis Family History Mother Alive and well Father Alive and well Denies family history of Diabetes Myocardial infarction Cancer Stroke Social History Smoking Status: Current some day smoker Years Smoked: 30; Cigarettes Per Day: 5; Hx Alcohol Use: Yes Alcohol type: beer Alcohol type Comment: 3 beers day Hx Substance Use: No Preferred Language: [place] Communication Ability: Effective Autism Motor Specialist Required: No Beliefs That Will Affect Care: None marital status: Single Current Living Situation: Significant Other Other Information That Helps Us Care for You: No Feels Safe at Home: Yes Safety Concerns: Feels Safe At This Time Assistive Devices: None Review of Systems Review of Systems: All systems reviewed & are unremarkable except as noted in HPI & below Physical Exam Physical Exam: Please refer to Dr. Boswell addendum for physical exam findings Results & Data Results & Data ([facility]) Vital Signs (Past 12 Hours) Vital Signs Temp Pulse Pulse Resp BP BP Pulse Ox 04/21/21 12:40 85 20 184/101 H 92 04/21/21 12:30 93 H 24 197/113 H 92 04/21/21 12:27 91 H 20 209/115 H 93 04/21/21 12:15 95 H 20 224/125 H 92 04/21/21 12:10 92 H 20 197/105 H 93 04/21/21 12:05 92 H 17 194/109 H 92 04/21/21 12:00 95 H 19 216/120 H 93 04/21/21 11:55 94 H 18 207/117 H 92 04/21/21 11:50 93 H 20 211/116 H 93 04/21/21 11:45 93 H 21 211/118 H 92 04/21/21 11:40 92 H 22 206/117 H 92 04/21/21 11:35 90 22 203/117 H 92 04/21/21 11:30 91 H 20 202/131 H 91 04/21/21 11:25 105 H 18 235/130 H 93 04/21/21 11:20 101 H 17 227/130 H 93 04/21/21 11:15 102 H 18 234/138 H 93 04/21/21 11:10 100 H 20 228/117 H 93 04/21/21 11:09 99 H 16 223/127 H 92 04/21/21 11:04 123 H 20 259/151 H 93 04/21/21 10:37 36.5 C 111 H 18 257/112 H [address] 04/21/21 10:40 CT angio neck with con, CT angio head w con, CT head/brain wo con CLINICAL HISTORY: stroke TECHNIQUE: Contiguous axial CT images of the head were acquired from the base of the skull to the vertex without intravenous contrast administration. CT angiography of the head and neck was performed following intravenous administration of iodinated contrast. Coronal and sagittal MIPS were obtained from the axial data set and were submitted for review. Automated dose lowering techniques and/or adjustment according to patient size were utilized for this examination. All measurements were calculated based on NASCET criteria. Comparison: None available at the time of this dictation. FINDINGS: CT head: Areas of decreased attenuation are present in the periventricular and subcortical white matter bilaterally consistent with small vessel ischemic disease. Generalized cerebral atrophy with commensurate enlargement of the ventricles, sulci, and cisterns is also present. There is no acute intracranial hemorrhage or evidence of acute territorial infarction. No shift of the midline structures, mass effect, or extra-axial abnormalities are shown. Atherosclerotic calcifications are present in the intracranial segments of the internal carotid arteries. Lungs and soft tissues are unremarkable. CTA Neck: A 3 vessel aortic arch is shown. Atherosclerotic plaque is present in the aortic arch and at the origin of the great vessels. There is abrupt narrowing of the right vertebral artery at the level of PICA. There is significant narrowing of the left vertebral artery at the level of C5-C6. The common carotid, external carotid, cervical segments of the internal carotid arteries, and the cervical segments of the vertebral arteries are patent without hemodynamically significant stenosis. The left vertebral artery is dominant. CTA Head: The anterior and posterior cerebral circulations are patent. No hemodynamically significant stenosis, aneurysm, dissection, or arteriovenous malformation is shown. Atherosclerotic disease is noted. IMPRESSION: 1. No acute intracranial hemorrhage, evidence of acute territorial infarction, or other acute intracranial disease process. 2. No occlusion, hemodynamically significant stenosis, aneurysm, dissection, or arteriovenous malformation in the major intracranial arteries. 3. Bilateral vertebral artery stenosis, on the left at the level of C5-C6 and on the right at the level of PICA. Assessment of stenosis of the internal carotid arteries is based on NASCET criteria. ACT 112: Negative or not required by law. Electronically signed by: Allan Gu M.D. 04/21/2021 11:39 AM Head CTA 04/21/21 10:44 CT angio neck with con, CT angio head w con, CT head/brain wo con CLINICAL HISTORY: stroke TECHNIQUE: Contiguous axial CT images of the head were acquired from the base of the skull to the vertex without intravenous contrast administration. CT angiography of the head and neck was performed following intravenous administration of iodinated contrast. Coronal and sagittal MIPS were obtained from the axial data set and were submitted for review. Automated dose lowering techniques and/or adjustment according to patient size were utilized for this examination. All measurements were calculated based on NASCET criteria. Comparison: None available at the time of this dictation. FINDINGS: CT head: Areas of decreased attenuation are present in the periventricular and subcortical white matter bilaterally consistent with small vessel ischemic disease. Generalized cerebral atrophy with commensurate enlargement of the ventricles, sulci, and cisterns is also present. There is no acute intracranial hemorrhage or evidence of acute territorial infarction. No shift of the midline structures, mass effect, or extra-axial abnormalities are shown. Atherosclerotic calcifications are present in the intracranial segments of the internal carotid arteries. Lungs and soft tissues are unremarkable. CTA Neck: A 3 vessel aortic arch is shown. Atherosclerotic plaque is present in the aortic arch and at the origin of the great vessels. There is abrupt narrowing of the right vertebral artery at the level of PICA. There is significant narrowing of the left vertebral artery at the level of C5-C6. The common carotid, external carotid, cervical segments of the internal carotid arteries, and the cervical segments of the vertebral arteries are patent without hemodynamically significant stenosis. The left vertebral artery is dominant. CTA Head: The anterior and posterior cerebral circulations are patent. No hemodynamically significant stenosis, aneurysm, dissection, or arteriovenous malformation is shown. Atherosclerotic disease is noted. IMPRESSION: 1. No acute intracranial hemorrhage, evidence of acute territorial infarction, or other acute intracranial disease process. 2. No occlusion, hemodynamically significant stenosis, aneurysm, dissection, or arteriovenous malformation in the major intracranial arteries. 3. Bilateral vertebral artery stenosis, on the left at the level of C5-C6 and on the right at the level of PICA. Assessment of stenosis of the internal carotid arteries is based on NASCET criteria. ACT 112: Negative or not required by law. Electronically signed by: Allan Gu M.D. 04/21/2021 11:39 AM Neck CTA 04/21/21 10:44 CT angio neck with con, CT angio head w con, CT head/brain wo con CLINICAL HISTORY: stroke TECHNIQUE: Contiguous axial CT images of the head were acquired from the base of the skull to the vertex without intravenous contrast administration. CT angiography of the head and neck was performed following intravenous administration of iodinated contrast. Coronal and sagittal MIPS were obtained from the axial data set and were submitted for review. Automated dose lowering techniques and/or adjustment according to patient size were utilized for this examination. All measurements were calculated based on NASCET criteria. Comparison: None available at the time of this dictation. FINDINGS: CT head: Areas of decreased attenuation are present in the periventricular and subcortical white matter bilaterally consistent with small vessel ischemic disease. Generalized cerebral atrophy with commensurate enlargement of the ventricles, sulci, and cisterns is also present. There is no acute intracranial hemorrhage or evidence of acute territorial infarction. No shift of the midline structures, mass effect, or extra-axial abnormalities are shown. Atherosclerotic calcifications are present in the intracranial segments of the internal carotid arteries. Lungs and soft tissues are unremarkable. CTA Neck: A 3 vessel aortic arch is shown. Atherosclerotic plaque is present in the aortic arch and at the origin of the great vessels. There is abrupt narrowing of the right vertebral artery at the level of PICA. There is significant narrowing of the left vertebral artery at the level of C5-C6. The common carotid, external carotid, cervical segments of the internal carotid arteries, and the cervical segments of the vertebral arteries are patent without hemodynamically significant stenosis. The left vertebral artery is dominant. CTA Head: The anterior and posterior cerebral circulations are patent. No hemodynamically significant stenosis, aneurysm, dissection, or arteriovenous malformation is shown. Atherosclerotic disease is noted. IMPRESSION: 1. No acute intracranial hemorrhage, evidence of acute territorial infarction, or other acute intracranial disease process. 2. No occlusion, hemodynamically significant stenosis, aneurysm, dissection, or arteriovenous malformation in the major intracranial arteries. 3. Bilateral vertebral artery stenosis, on the left at the level of C5-C6 and on the right at the level of PICA. Assessment of stenosis of the internal carotid arteries is based on NASCET criteria. ACT 112: Negative or not required by law. Electronically signed by: Allan Gu M.D. 04/21/2021 11:39 AM Chest CTA: IMPRESSION: 1. No acute abnormality and in particular no evidence of acute aortic injury. 2. Pulmonary hypertension. Mild to moderate pulmonary edema. CT a/p: IMPRESSION: 1. No evidence of dissection. 2. 28 mm infrarenal abdominal aortic aneurysm. Atherosclerotic disease is seen. 3. Stable right adrenal nodule from 2011. 4. Hepatic steatosis. 5. Additional findings as above. Medications Administered Medication List Discontinued Medications Aspirin (Aspirin Chew 324 Mg) 324 mg PO NOW STA Stop: 04/21/21 12:17 Last Admin: 04/21/21 12:27 Dose: 324 mg Documented by: [id number] Ioversol (Optiray 320 125ml) 120 ml IV ONCE ONE Stop: 04/21/21 10:57 Last Admin: 04/21/21 10:57 Dose: 120 ml Documented by: [id number] Labetalol HCl (Labetalol Hcl Iv 5 Mg/Ml 20ml) 10 mg IV NOW STA Stop: 04/21/21 10:48 Last Admin: 04/21/21 11:05 Dose: 10 mg Documented by: [id number] Cosigned by: [id number] Labetalol HCl (Labetalol Hcl Iv 5 Mg/Ml 20ml) 20 mg IV NOW STA Stop: 04/21/21 11:19 Last Admin: 04/21/21 11:23 Dose: 20 mg Documented by: [id number] Cosigned by: [id number] Labetalol HCl (Labetalol Hcl Iv 5 Mg/Ml 20ml) 20 mg IV NOW STA Stop: 04/21/21 12:24 Last Admin: 04/21/21 12:35 Dose: 10 mg Documented by: [id number] Cosigned by: [id number] ECG Rate (beats per minute): 102 Rhythm: sinus tachycardia Findings: + T-wave inversion Additional Comments: t wave inversion leads v4-v6, 1 and AVL COVID-19 Results Results COVID-19 Adm Lab Results: RBC 5.33 M/uL (4.7-6.1) 04/21/21 WBC 10.24 K/uL (4.8-10.8) 04/21/21 Hgb 17.2 g/dL (14.0-18.0) 04/21/21 Hct 49.4 % (42-52) 04/21/21 Plt Count 167 K/uL (130-400) 04/21/21 Na 130 mmol/L (136-145) L 04/21/21 K 4.5 mmol/L (3.5-5.1) 04/21/21 Cl 102 mmol/L (98-107) 04/21/21 CO2 21 mmol/L (21-32) 04/21/21 Anion Gap 7 (3-11) 04/21/21 BUN 11 mg/dl (6-23) 04/21/21 Creatinine 0.73 mg/dl (0.6-1.4) 04/21/21 BUN/Creatinine Ratio 15.1 (10-20) 04/21/21 Glucose Level 126 mg/dl (70-99(Fasting)) H 04/21/21 Ca 8.8 mg/dl (8.5-10.1) 04/21/21 Total Bilirubin 0.7 mg/dl (0.2-1.0) 04/21/21 AST/SGOT 69 U/L (13-39) H 04/21/21 ALT/SGPT 37 U/L (7-52) 04/21/21 Alkaline Phosphatase 52 U/L (34-104) 04/21/21 Total Protein 7.2 gm/dl (6.0-8.3) 04/21/21 Albumin 4.2 gm/dl (3.4-5.0) 04/21/21 Globulin 3.0 gm/dl (2.5-4.0) 04/21/21 Albumin/Globulin Ratio 1.4 (0.9-2) 04/21/21 Troponin I 6.96 ng/ml (0-0.04) H* 04/21/21 CRP Pending 04/21/21 PTT 28.1 Seconds (21.0-31.0) 04/21/21 INR 1.1 (0.9-1.1) 04/21/21 SARS-CoV-2, RNA, NAAT NEGATIVE (NEGATIVE) 04/21/21 Code Status & VTE Plan Code Status FULL CODE VTE Prophylaxis Plan VTE Prophylaxis will be ordered: Yes Supervising Physician Co-Signing Physician Notes I have seen and examined the patient and have discussed the case with the provider above. I agree with the assessment and plan as stated. 65 yo M presents with monocular vision loss. Blood pressure found to be critically elevated. He denies headache, eye pain, stroke like symptoms including no difficulty swallowing, speaking or movement of limbs. No issues with walking but feels some dysequilibrium possibly related to the new vision issues. He had no issues with vision yesterday and has no known history of hypertension. EKG reveals sinus rhythm and evidence of LVH, likely from long-standing hypertension. Echo reveals no evidence of vegetation and normal EF, again with LVH. He reports daily alcohol use and he is an active smoker. Physical exam revealed a WNWD man in NAD. Head is NC/AT, pupils are round and equal to light bilaterally. Funduscopic exam bilaterally is negative for papilledema. No carotid, abdominal or iliac bruits on auscultation. Cardiac exam reveals S1/2 heard without murmurs, gallops or rubs. There is no peripheral edema and extremities are warm and well-perfused. Lungs are clear to auscultation throughout. Abdomen is protuberant, soft, NTND. CN 2-12 intact, he is able to see how many fingers I am holding up with each eye covered separately. Visual acuity test pending. It appears his vision is starting to improve since this morning per his report. CBC is normal, BMP reveals Na 130, and otherwise normal including normal renal function. ESR is 8 making temporal arteritis low likelihood, CRP also low. Trop 7 with no ischemic change on EKG and no active chest pain or shortness of breath. UA reveals trace blood with 0-4 RBC per hpf. Imaging includes CTA head and neck revealing bilateral vertebral artery stenosis and MRI brain which is negative for acute intracranial abnormality. Patient was treated in the ER with three doses of IV labetalol with some improvement in blood pressure that was transient. He was subsequently started on nifedipine and placed in the ICU for close monitoring and drip titration. The case with discussed with cardiology who is consulted and no heparin will be added at this time as the clinical picture is most consistent with myocardial strain in the setting of acute on chronic hypertension. Will cont to trend trop onin overnight and daily EKG. Neurology was consulted for possible acute stroke and the patient was placed on aspirin. MRI brain is negative, however, so stroke was ruled out. Finally, I spoke with Dr. Tadeo Kolb, video game technician non destructive evaluation technician who did not feel that an on site exam was warranted at this time given the current workup and results. He recommended to obtain a visual acuity and monitor vision symptoms, contacting him for an persistent issues with improvement in blood pressure. His number is [phone]. Differential diagnosis includes but is not limited to hypertensive optic neuropathy, retinal detachment or damage, retinal artery or vein occlusion. Cont nicardipine for goal blood pressure reduction of at least 25% from initial MAP on arrival which was 160. Management of this per filling hauler. Transient monocular vision loss-right eye in the setting of hypertensive emergency Elevated troponin 2/2 demand ischemia Hyponatremia Microscopic hematuria Paula Boswell DO [facility]
--- NOTE | 2021-04-21 13:24 | Magnetic Resonance Report ---
MR brain wo con CLINICAL HISTORY: cvs sx, R vision loss, HTN TECHNIQUE: Multiplanar and multisequence MR images of the brain were obtained without intravenous con trast. Comparison: Comparison is made to CT head 02/18/2022 FINDINGS: No abnormal restricted diffusion is identified. Foci of T2 and FLAIR hyperintensity are noted in the paraventricular areas consistent with chronic small vessel ischemic disease. Ex vacuo ventriculomegal y and sulcal enlargement is noted compatible with diffuse encephalomalacia. No extra axial fluid dick ections are seen. There are no masses, mass effect, or midline shift. The corpus callosum, pituitary gland, and cerebellar tonsils appear grossly unremarkable. Flow voids of the major intracranial arterial vessels are identified. The imaged portions of the para nasal sinuses, mastoid air cells, and orbits are unremarkable. IMPRESSION: No acute abnormalities. ACT 112: Negative or not required by law. Electronically signed by: Allan Gu M.D. 04/21/2021 1:23 PM
[2021-04-21] MEDS: niCARdipine 25 MG in SODIUM CHLORIDE 0.9% 240 ML IV SCH (13:41)
--- NOTE | 2021-04-21 13:41 | CT Scan Report ---
CT angio chest dissec wo/w con CLINICAL HISTORY: dissection TECHNIQUE: Multidetector row helical CT of the chest was performed before and after injection of IV c ontrast. Coronal and sagittal reformations were obtained. Automated dose lowering techniques and/or a djustment according to patient size were utilized for this exam. Comparison: None available at the time of this dictation. FINDINGS: Lungs and pleura: Diffuse smooth interlobular septal thickening is seen most prominent at the lung ba ses and apices. Heart and pericardium: Heart size is normal. No pericardial effusion. Vessels: The pulmonary trunk is enlarged measuring 33 mm. No evidence of acute aortic injury. Mediastinum and margot: Subcentimeter lymph nodes are seen. Chest wall and lower neck: Unremarkable. Abdomen: For findings below the diaphragm, please refer to CT of the abdomen dated the same. Bones: Degenerative changes in the thoracic spine. IMPRESSION: 1. No acute abnormality and in particular no evidence of acute aortic injury. 2. Pulmonary hypertension. Mild to moderate pulmonary edema. ACT 112: Negative or not required by law. Electronically signed by: Allan Gu M.D. 04/21/2021 1:40 PM
--- NOTE | 2021-04-21 13:53 | CT Scan Report ---
CT angio abdomen pelvis w con CLINICAL HISTORY: dissection TECHNIQUE: Multidetector row helical CT of the abdomen and pelvis was performed, following intravenou s administration of iodinated contrast. No oral contrast was administered. Automated dose lowering te chniques and/or adjustment according to patient size were utilized for this exam. Coronal and sagitta l reformations were obtained. MIP and 3D volume rendered reconstructions were obtained. Comparison: Comparison is made to CT abdomen pelvis 12/11/2011 FINDINGS: Lower chest: For findings above the diaphragm, please see CT chest performed same day. Liver: Hepatic steatosis is noted. Gallbladder and biliary tree: No calcified gallstones. Normal caliber wall. No intra- or extrahepatic biliary ductal dilation. Pancreas: Unremarkable, no focal lesions. Spleen: Splenule is incidentally noted. Adrenals: Stable right adrenal nodule.. Kidneys and ureters: Unremarkable. Bladder: Unremarkable. Reproductive organs: Prostatomegaly is seen. Bowel: Diverticulosis is seen without evidence of diverticulitis. A hiatal hernia is seen. The append ix is normal. Lymph nodes Retroperitoneal: Unremarkable. Mesenteric: Unremarkable. Pelvic: Unremarkable. Peritoneum: Normal. Abdominal wall: Unremarkable. Bones: Degenerative changes in the visualized spine. Scoliosis is seen. There are bilateral pars defe cts at L5-S1 with grade [address] angiogram: There is an infrarenal abdominal aortic aneurysm measuring 28 mm in diameter. Atheroscl erotic disease is seen. There is no evidence of dissection. Stat The origins of the celiac axis, superior mesenteric, inferior mesenteric and bilateral renal arteries are patent. IMPRESSION: 1. No evidence of dissection. 2. 28 mm infrarenal abdominal aortic aneurysm. Atherosclerotic disease is seen. 3. Stable right adrenal nodule from 2012. 4. Hepatic steatosis. 5. Additional findings as above. ACT 112: Negative or not required by law. Electronically signed by: Allan Gu M.D. 04/21/2021 1:51 PM
[2021-04-21] MEDS ORDERED: PHARMACIST DISCHARGE MED REC CONSULT PRN (14:36)
[2021-04-21] MEDS ORDERED: ICU PROTOCOL FOR HYPERGLYCEMIA PRN (14:36)
[2021-04-21] MEDS ORDERED: LORazepam 1 MG/2 ML VIAL IV PRN (14:36)
[2021-04-21] MEDS ORDERED: POLYETHYLENE (MIRALAX) 17 GM PACK PO PRN (14:36)
[2021-04-21] MEDS ORDERED: ALUMINUM/MAGNESIUM/SIMETH (MAALOX MAX) 30 ML UDC PO PRN (14:36)
[2021-04-21] MEDS ORDERED: MAGNESIUM HYDROXIDE SUSP 30 ML UDC PO PRN (14:36)
[2021-04-21] MEDS ORDERED: FLUARIX QUADRIVALENT 0.5 ML SYR IM ONE (15:08)
[2021-04-21] MEDS: THIAMINE HCL 100 MG TAB PO SCH (15:35)
[2021-04-21] MEDS: FOLIC ACID 1 MG TAB PO SCH (15:35)
--- NOTE | 2021-04-21 15:42 | Cardiology Consultation ---
Date of Consultation April 21, 2021 Assessment & Plan (1) Hypertensive emergency: (2) Elevated troponin: (3) Abnormal EKG: Patient presents with extremely high blood pressure, initially 259/151 mmHg. At the time of my assessment in the intensive care unit, patient had already received a dose of IV labetalol, and nicardipine infusion was recently initiated 2.5 mg/h with blood pressure of 170/92. Patient denies any symptoms suggestive angina. EKG and elevation in troponin are consistent with myocardial strain in the setting of acute on chronic hypertension. 1/6 systolic murmur noted, await echocardiogram results. History of Present Illness Attending Physician: Paula Boswell DO History of Present Illness Aneesh Trejo is a 65-year-old male seen in cardiology consultation per the request of Ashly Baez PA-C of the [facility] service for the evaluation of hypertensive emergency, abnormal EKG, and elevation in troponin I. The patient states that he does not go to the doctor routinely, and cannot remember when the last time he had his blood pressure taken was prior to today. Last evening he describes having been in his normal state of health, but when he woke up this morning he noted visual impairment with a "cloudiness "in his right eye. At present he states that the vision in his right eye has improved to a subtle degree compared to when he initially presented to the emergency department this morning, but it is still not back to normal. He denies any chest discomfort or shortness of breath. He describes himself as being physically active at baseline, and he mows his grass in the summer without difficulty, and his split wood recently without perceived cardiac symptoms. Social History: Retired from construction Smokes 3 to 4 cigarettes/day Drinks 3-4 Coors Light beers per day Family History: Notes no family history of coronary heart disease in parents, siblings. Allergies Allergy/AdvReac Type Severity Reaction Status Date / Time No Known Allergies Allergy Unverified 12/11/11 09:54 Home Medications Medication Instructions Recorded Confirmed Type No Known Home Medications 04/21/21 04/21/21 History Patient History Medical History No significant past medical history Surgical History History of thoracentesis Family History Mother Alive and well Father Alive and well Denies family history of Diabetes Myocardial infarction Cancer Stroke Social History Smoking Status: Current some day smoker Years Smoked: 30; Cigarettes Per Day: 5; Hx Alcohol Use: Yes Alcohol type: beer Alcohol type Comment: 3 beers day Hx Substance Use: No Preferred Language: Nepali Communication Ability: Effective Environmental Services Assistant Required: No Beliefs That Will Affect Care: None marital status: Single Current Living Situation: Significant Other Other Information That Helps Us Care for You: No Feels Safe at Home: Yes Safety Concerns: Feels Safe At This Time Assistive Devices: None Review of Systems Review of Systems: All systems reviewed & are unremarkable except as noted in HPI & below Physical Exam Constitutional: WD/WN, vitals as above Respiratory: normal respiratory effort, lungs clear to auscultation Cardiovascular: Rate/Rhythm: regular rate and regular rhythm Heart Sounds: + murmur (1/6 systolic murmur) Extremities: no edema Gastrointestinal (Abdomen): normal bowel sounds, soft, nontender, no hepatosplenomegaly Neurologic: Describes ongoing blurriness of right eye, otherwise conversant, fluent speech noted, no word finding abnormalities, no focal motor deficits Psychiatric: A+Ox3, euthymic affect Results & Data ([facility]) Vital Signs (Past 12 Hours) Vital Signs Temp Pulse Pulse Resp BP BP Pulse Ox 04/21/21 15:00 89 24 92 04/21/21 14:59 90 20 170/92 H 95 04/21/21 14:49 91 H 20 170/92 H 89 L 04/21/21 14:48 91 H 19 173/101 H 93 04/21/21 14:34 88 23 180/131 H 94 04/21/21 14:30 88 22 93 04/21/21 14:29 88 21 180/97 H 94 04/21/21 14:00 93 H 19 156/87 H 93 04/21/21 13:58 93 H 19 166/89 H 92 04/21/21 13:45 171/120 H 04/21/21 13:33 90 20 210/105 H 93 04/21/21 12:40 85 20 184/101 H 92 04/21/21 12:30 93 H 24 197/113 H 92 04/21/21 12:27 91 H 20 209/115 H 93 04/21/21 12:15 95 H 20 224/125 H 04/21/21 12:10 92 H 20 197/105 H 93 04/21/21 12:05 92 H 17 194/109 H 92 04/21/21 12:00 95 H 19 216/120 H 93 04/21/21 11:55 94 H 18 207/117 H 04/21/21 11:50 93 H 20 211/116 H 04/21/21 11:45 93 H 21 211/118 H 04/21/21 11:40 92 H 22 206/117 H 04/21/21 11:35 90 22 203/117 H 04/21/21 11:30 91 H 20 202/131 H 04/21/21 11:25 105 H 18 235/130 H 04/21/21 11:20 101 H 17 227/130 H 04/21/21 11:15 102 H 18 234/138 H 04/21/21 11:10 100 H 20 228/117 H 04/21/21 11:09 99 H 16 223/127 H 04/21/21 11:04 123 H 20 259/151 H 04/21/21 10:37 36.5 C 111 H 18 257/112 H 97 Laboratory Results Troponin I: 7.17 Diagnostic Findings EKG performed 04/21/2021: Sinus tachycardia at 102 bpm, left ventricular hypertrophy by voltage criteria with strain pattern in the lateral precordial leads. -Compared to the only available prior tracing dating back to 12/11/2011, LVH none noted, T wave inversions in the lateral leads now noted. Chest CTA, coronary calcifications noted, mitral annular calcification noted aortic valve and thoracic aortic calcification noted Per radiology report, no acute aortic dissection or injury. CTA of the head and neck reveals bilateral vertebral artery stenosis on the left at the level of C5-C6 and on the right at the level of the PICA Summary of radiology report, MRI of the brain: No abnormal restricted diffusion is identified. Foci of T2 and FLAIR hyperintensity are noted in the paraventricular areas consistent with chronic small vessel ischemic disease. Ex vacuo ventriculomegaly and sulcal enlargement is noted compatible with diffuse encephalomalacia. No extra axial fluid collections are seen. There are no masses, mass effect, or midline shift. The corpus callosum, pituitary gland, and cerebellar tonsils appear grossly unremarkable. Flow voids of the major intracranial arterial vessels are identified. The imaged portions of the paranasal sinuses, mastoid air cells, and orbits are unremarkable. IMPRESSION: No acute abnormalities.
[2021-04-21] MEDS ORDERED: carvediloL 3.125 MG TAB PO ONE (16:31)
--- NOTE | 2021-04-21 16:46 | Critical Care Consultation ---
Date of Consultation April 21, 2021 Assessment & Plan (1) Hypertensive emergency: (2) Vision loss, right eye: (3) Elevated troponin: 65-year-old male with a past medical history of tobacco abuse presenting to the hospital due to hypertension and right vision loss Neurologic: Ophthalmology consult to evaluate vision loss. MRI brain imaging negative. Pulmonary: Borderline hypoxia. Pulmonary edema seen on chest CT. History of smoking. Tobacco smoking cessation encouraged. Cardiovascular: Decrease map by 25% over the next 6 to 12 hours. Nicardipine drip currently infusing. We will give the patient low-dose carvedilol and losartan. Troponin elevated. Cardiology consult appreciated. Echo ordered. Infrarenal abdominal aortic aneurysm seen. Will need follow-up with vascular surgery. Gastrointestinal: No issues. Renal: Hyponatremia possibly related to excess v.olume Infectious disease: No issues Hematologic: No issues Endocrine: TSH within normal limits VTE prophylaxis: SCD CODE STATUS: Full Family at bedside: None available at bedside Disposition: Remain in the ICU while on nicardipine. Discussed with hospitalist team and bedside nurse. I have personally spent 33 minutes of critical care time in the direct management of this patient. This is a life/limb threatening event. This includes time spent evaluating patient, direct bedside care, chart review, placing orders, interpretation of diagnostic studies, discussion with consultants, femi ent, and family members, as well as other required patient management activities. This time is exclusive of all separately billable procedures, and teaching time and separate from and in addition to any other critical care service time. Thank you for allowing us to participate in the care of this patient. History of Present Illness Reason for Consultation: Hypertensive emergency Attending Physician: Paula Boswell DO History of Present Illness 65-year-old male with no significant past medical history who presented to the hospital due to vision loss in his right eye which started this morning. Yesterday he was reading and felt like his usual self. He did note some dizziness sensation this morning. He notes that he sees shades of dotson and black in his right eye. He does not know if he completely lost his vision. He denies any headache. No fevers or chills. He called his process control tech who encouraged him to go to the ER. He was started on nicardipine drip in the emergency department. He had a CT of his head, CTA, CTA neck, MRI brain, CTA abdomen and CTA chest. Pulmonary edema was seen on his CT chest. A 2.8 cm infrarenal abdominal aortic aneurysm that was noted on his CT of his abdomen. Bilateral vertebral artery stenosis noted on the CTA neck. Echo completed today demonstrated moderate concentric LVH and asymmetric apical left ventricular hypertrophy. LVEF 60-65. Grade 1 diastolic dysfunction. Allergies Allergy/AdvReac Type Severity Reaction Status Date / Time No Known Allergies Allergy Unverified 12/11/11 09:54 Home Medications Medication Instructions Recorded Confirmed Type No Known Home Medications 04/21/21 04/21/21 History Patient History Medical History No significant past medical history Surgical History History of thoracentesis Family History Mother Alive and well Father Alive and well Denies family history of Diabetes Myocardial infarction Cancer Stroke Social History Smoking Status: Current some day smoker Years Smoked: 30; Cigarettes Per Day: 5; Hx Alcohol Use: Yes Alcohol type: beer Alcohol type Comment: 3 beers day Hx Substance Use: No Preferred Language: Afghan Communication Ability: Effective Authorization Nurse Required: No Beliefs That Will Affect Care: None marital status: Single Current Living Situation: Significant Other Other Information That Helps Us Care for You: No Feels Safe at Home: Yes Safety Concerns: Feels Safe At This Time Assistive Devices: None Review of Systems Review of Systems: All systems reviewed & are unremarkable except as noted in HPI & below Physical Exam Physical Exam: Constitutional: Patient appears to be of their stated age. Patient is in no apparent distress. Patient is well-developed. Eyes: Pupils are equal round and reactive to light. Conjunctivae are normal. Anicteric sclera. Ears nose, mouth and throat: No obvious deformities. Neck: Trachea is midline. Visual inspection is normal. Respiratory: Clear to auscultation bilaterally. No use of accessory muscles. No significant clubbing noted. Cardiovascular: Regular rate and rhythm. No murmurs. No edema. Gastrointestinal: Normal bowel sounds, soft, nontender and nondistended. No hepatosplenomegaly noted. Musculoskeletal: No cyanosis. Patient is able to move all extremities. Strength is 5 out of 5 in the upper and lower extremities. Skin: No rashes, warm dry and intact. Neurologic: No obvious focal neurological deficits seen. Psychiatric: Alert and oriented x3 with a euthymic affect. Results & Data Results & Data ([facility]) Vital Signs (Past 12 Hours) Vital Signs Temp Pulse Pulse Resp BP BP Pulse Ox 04/21/21 15:00 89 24 92 04/21/21 14:59 90 20 170/92 H 95 04/21/21 14:49 91 H 20 170/92 H 89 L 04/21/21 14:48 91 H 19 173/101 H 93 04/21/21 14:34 88 23 180/131 H 94 04/21/21 14:30 88 22 93 04/21/21 14:29 88 21 180/97 H 94 04/21/21 14:00 93 H 19 156/87 H 93 04/21/21 13:58 93 H 19 166/89 H 92 04/21/21 13:45 171/120 H 04/21/21 13:33 90 20 210/105 H 93 04/21/21 12:40 85 20 184/101 H 92 04/21/21 12:30 93 H 24 197/113 H 92 04/21/21 12:27 91 H 20 209/115 H 93 04/21/21 12:15 95 H 20 224/125 H 92 04/21/21 12:10 92 H 20 197/105 H 93 04/21/21 12:05 92 H 17 194/109 H 92 04/21/21 12:00 95 H 19 216/120 H 93 04/21/21 11:55 94 H 18 207/117 H 92 04/21/21 11:50 93 H 20 211/116 H 93 04/21/21 11:45 93 H 21 211/118 H 92 04/21/21 11:40 92 H 22 206/117 H 92 04/21/21 11:35 90 22 203/117 H 92 04/21/21 11:30 91 H 20 202/131 H 91 04/21/21 11:25 105 H 18 235/130 H 93 04/21/21 11:20 101 H 17 227/130 H 93 04/21/21 11:15 102 H 18 234/138 H 93 04/21/21 11:10 100 H 20 228/117 H 93 04/21/21 11:09 99 H 16 223/127 H 92 04/21/21 11:04 123 H 20 259/151 H 93 04/21/21 10:37 36.5 C 111 H 18 257/112 H 97 Coding Level of Care Code Critical Care 1st 30-74 mins Diagnoses Hypertensive emergency I16.1 Vision loss, right eye H54.61 Elevated troponin R77.8 Time Spent (min) 33
[2021-04-21] MEDS: LOSARTAN POTASSIUM 25 MG TAB PO SCH (18:11)
[2021-04-21] MEDS: carvediloL 3.125 MG TAB PO SCH (20:26)
[2021-04-21] MEDS ORDERED: carvediloL 3.125 MG TAB PO SCH (21:00)
[2021-04-22 05:03] LABS: Basophils # (auto) 0.03 K/uL (0-0.2); Basophils % (auto) 0.3 %; Eosinophils % (auto) 1.1 %; Hematocrit (blood only) 47.9 % (42-52); Hemoglobin 16.3 g/dL (14.0-18.0); Immature Granulocytes # (auto) 0.02 K/uL (0.00-0.02); Immature Granulocytes % (auto) 0.2 %; Lymphocytes # (auto) 1.47 K/uL (1.2-3.4); Lymphocytes % (auto) 15.8 %; Mean Corpuscular Volume 93.9 fL (80-100); Mean Platelet Volume 9.4 fL (7.4-10.4); Monocytes # (auto) 1.23 K/uL (0.11-0.59); Monocytes % (auto) 13.3 %; Neutrophils # (auto) 6.43 K/uL (1.4-6.5); Neutrophils % (auto) 69.3 %; Platelet Count 174 K/uL (130-400); RDW Coefficient of Variation 14.1 % (11.5-14.5); RDW Standard Deviation 48.8 fL (36.4-46.3); White Blood Count 9.28 K/uL (4.8-10.8)
[2021-04-22 05:37] LABS: BUN Creatinine Ratio 15.5 (10-20); Calcium 8.6 mg/dl (8.5-10.1); Chol HDL Ratio 3.4 (0-5); Creatinine Clr Calc Pharmacy 131.8 ml/min; Est GFR (African American) 114.9 ml/min; Est GFR (Non-African American) 99.2 ml/min; Magnesium 2.2 mg/dl (1.7-2.4); Phosphorus 3.5 mg/dl (2.5-4.9)
[2021-04-22] MEDS: niCARdipine 25 MG in SODIUM CHLORIDE 0.9% 240 ML IV SCH (07:44)
[2021-04-22] MEDS: FOLIC ACID 1 MG TAB PO SCH (07:45)
[2021-04-22] MEDS: THIAMINE HCL 100 MG TAB PO SCH (07:45)
[2021-04-22] MEDS: ASPIRIN 81 MG ECTAB PO SCH (07:45)
[2021-04-22] MEDS: LOSARTAN POTASSIUM 25 MG TAB PO SCH (07:45)
[2021-04-22] MEDS: carvediloL 3.125 MG TAB PO SCH (07:46)
[2021-04-22 07:50] LABS: Estimated Average Glucose 108 mg/dl; Hemoglobin A1C 5.4 % (4.5-5.6)
[2021-04-22] MEDS: hydrALAZINE HCL 20 MG/ML VIAL IV PRN (07:59)
[2021-04-22] MEDS ORDERED: METOPROLOL TARTRATE 25 MG TAB PO ONE (09:15)
--- NOTE | 2021-04-22 09:52 | Cardiology Progress Note ---
Date of Service April 22, 2021 Assessment & Plan (1) Hypertensive emergency: (2) Elevated troponin: (3) Abnormal EKG: (4) Aortic regurgitation: Plan: (1) Hypertensive emergency with right sided visual impairment, Troponin elevation: -CTA, B/L vertebral artery stenosis MRI negative for stroke. -off of nicardipine since 18:30. -Given sinus tachycardia and HTN, transition to metoprolol tartrate rather than carvedilol. -Losartan , first dose this am. -Add atorvastatin. Repeat LFTs in am. (2) Elevated troponin / (3) Abnormal EKG: EKG this am with LVH by voltage criteria , evolved anterolateral T wave inversions. No clinical CHF, or symptoms of angina. Repeat echo this am with sonic contrast for further evaluation of LVH, reasses AR. (4) Aortic regurgitation: At least moderate AR. Optimize BP. Repeat TTecho / perhaps SHARMIN in a month for repeat assessment after BP improved. Admission and Anticipated Discharge Date Admission Date: April 21, 2021 Subjective Mr Trejo is seen in cardiology follow up. He is alert and comfortable. Sinus tachycardia at 100 bpm noted on EKG and telemetry. Denies chest pain or SOB, still with right eye blurred vision, but says it is better than when he initially came to the ED. Review of Systems Review of Systems: All systems reviewed & are unremarkable except as noted in HPI & below Physical Exam Constitutional: no acute distress Respiratory: normal respiratory effort, lungs clear to auscultation Cardiovascular: Rate/Rhythm: + tachycardic Heart Sounds: no murmur (no murmur, however evaluation of diasoltic murmur limited by tachycardia ) Gastrointestinal (Abdomen): normal bowel sounds, soft, nontender, no hepatosplenomegaly Neurologic: conversant, moves all 4 extremities Results & Data ([facility]) Vital Signs (Past 12 Hours) Vital Signs Temp Pulse Resp BP Pulse Ox 04/22/21 08:34 100 H 15 173/82 H 96 04/22/21 08:19 102 H 16 160/91 H 92 04/22/21 08:04 110 H 14 176/94 H 92 04/22/21 08:00 104 H 14 88 L 04/22/21 07:49 99 H 18 178/102 H 91 04/22/21 07:48 99 H 18 167/106 H 90 04/22/21 07:35 89 24 187/110 H 89 L 04/22/21 07:19 159/93 H 90 04/22/21 07:04 160/95 H 91 04/22/21 07:00 90 04/22/21 06:49 163/92 H 93 04/22/21 06:34 80 16 164/85 H 92 04/22/21 06:30 83 16 96 04/22/21 06:19 72 18 142/72 H 93 04/22/21 06:04 81 20 158/87 H 92 04/22/21 06:00 90 22 92 04/22/21 05:50 94 H 24 136/89 95 04/22/21 05:35 74 16 157/87 H 98 04/22/21 05:30 73 15 97 04/22/21 05:19 78 15 138/78 94 04/22/21 05:04 77 20 135/90 92 04/22/21 05:00 76 12 92 04/22/21 04:49 80 21 141/88 H 92 04/22/21 04:34 77 19 152/89 H 91 04/22/21 04:19 74 15 132/79 90 04/22/21 04:04 147/81 H 92 04/22/21 04:00 92 04/22/21 03:49 71 13 133/76 90 04/22/21 03:34 75 14 128/76 92 04/22/21 03:19 79 16 147/83 H 91 04/22/21 03:06 145/86 H 04/22/21 03:05 86 23 145/86 H 91 04/22/21 03:03 80 22 174/103 H 89 L 04/22/21 03:00 84 21 90 04/22/21 02:49 84 17 118/78 95 04/22/21 02:34 76 29 H 141/57 H 92 04/22/21 02:30 77 31 H 92 04/22/21 02:20 79 13 119/61 83 L 04/22/21 02:05 78 19 175/98 H 87 L 04/22/21 02:00 69 15 91 04/22/21 01:49 68 18 160/81 H 91 04/22/21 01:34 74 17 165/112 H 93 04/22/21 01:30 67 16 92 04/22/21 01:19 76 16 182/92 H 93 04/22/21 01:04 71 14 169/86 H 92 04/22/21 01:00 74 14 90 04/22/21 00:50 74 19 172/94 H 92 04/22/21 00:35 79 16 122/60 92 04/22/21 00:30 78 15 92 04/22/21 00:19 80 20 133/65 93 04/22/21 00:04 75 15 115/65 94 04/22/21 00:00 76 14 93 04/21/21 23:59 36.6 C 04/21/21 23:49 74 15 152/70 H 91 04/21/21 23:41 79 04/21/21 23:34 79 19 137/64 92 04/21/21 23:30 75 17 91 04/21/21 23:20 78 14 142/69 H 90 04/21/21 23:00 79 14 88 L 04/21/21 22:49 76 21 168/89 H 91 04/21/21 22:34 149/85 H 92 04/21/21 22:30 90 04/21/21 22:19 154/93 H 90 04/21/21 22:04 94 H 18 159/89 H 93 04/21/21 22:00 73 19 91 04/21/21 21:52 73 18 153/90 H 94 04/21/21 21:49 74 20 93 Laboratory Results Cardiac Enzymes 04/21/21 04/21/21 04/21/21 Range/Units 11:06 11:06 16:05 AST 69 H (13-39) U/L Troponin I 7.17 H* 6.96 H* (0-0.04) ng/ml 04/21/21 Range/Units 22:04 AST (13-39) U/L Troponin I 6.92 H* (0-0.04) ng/ml Coagulation 04/21/21 Range/Units 11:06 PT 10.9 (9.0-12.0) Seconds APTT 28.1 (21.0-31.0) Seconds Lipids 04/22/21 Range/Units 04:28 Triglycerides 83 (0-150) mg/dl Cholesterol 175 (0-200) mg/dl HDL Cholesterol 52 mg/dl Cholesterol/HDL Ratio 3.4 (0-5) CBC 04/21/21 04/22/21 Range/Units 11:06 04:28 WBC 10.24 9.28 (4.8-10.8) K/uL RBC 5.33 5.10 (4.7-6.1) M/uL Hgb 17.2 16.3 (14.0-18.0) g/dL Hct 49.4 47.9 (42-52) % Plt Count 167 174 (130-400) K/uL Neut # (Auto) 6.43 (1.4-6.5) K/uL Lymph # (Auto) 1.47 (1.2-3.4) K/uL Kimball # (Auto) 1.23 H (0.11-0.59) K/uL Eos # (Auto) 0.10 (0-0.5) K/uL Baso # (Auto) 0.03 (0-0.2) K/uL Comprehensive Metabolic Panel 04/21/21 04/22/21 Range/Units 11:06 04:28 Sodium 130 L 137 (136-145) mmol/L Potassium 4.5 4.0 (3.5-5.1) mmol/L Chloride 102 106 (98-107) mmol/L Carbon Dioxide 21 24 (21-32) mmol/L BUN 11 11 (6-23) mg/dl Creatinine 0.73 0.71 (0.6-1.4) mg/dl Glucose 126 H 105 H (70-99(Fasting)) mg/dl Calcium 8.8 8.6 (8.5-10.1) mg/dl AST 69 H (13-39) U/L ALT 37 (7-52) U/L Alkaline Phosphatase 52 (34-104) U/L Total Protein 7.2 (6.0-8.3) gm/dl Albumin 4.2 (3.4-5.0) gm/dl Intake and Output 04/21/21 04/22/21 04/22/21 22:59 06:59 14:59 Intake Total 591.667 / 608.334 0 / 0 Output Total 900 / 1300 400 / 1300 Balance -308.333 / -691.666 -400 / -691.666 0 / 0 Intake: IV 91.667 / 108.334 0 / 0 niCARdipine 25 mg In Sodium 91.667 / 108.334 0 / 0 Chloride 0.9% 240 ml @ 0 MG/HR IV .Q0M [facility] Rx#:[id number] Oral 500 / 500 Output: Urine 900 / 1300 400 / 1300
--- NOTE | 2021-04-22 10:06 | Discharge Summary ---
Date of Service April 22, 2021 Discharge Data Allergies Allergy/AdvReac Type Severity Reaction Status Date / Time No Known Allergies Allergy Unverified 12/11/11 09:54 Consultations 04/21/21 12:02 ED Decision to Admit Stat 04/21/21 12:45 Consult Regulatory Compliance Director Routine 04/21/21 12:52 Consult Neurology Routine 04/21/21 13:07 Consult Cardiology Routine 04/21/21 16:57 Consult Ophthalmology Routine Ordered Studies 04/21/21 10:40 CT head/brain wo con Stat 04/21/21 10:44 CT angio head w con Stat CT angio neck with con Stat 04/21/21 12:16 MR brain wo con Stat 04/21/21 12:47 CT angio abdomen pelvis w con Stat CT angio chest dissec wo/w con Stat Home Health Attestation I certify that this patient is under my care and that I, or a physicians assistant athletic trainer working with me, had a face to-face encounter that meets the home health [id number] encounter requirements with this patient. The encounter with the patient was in whole, or in part, for the following medical condition, which is the primary reason for home health care (list medical condition): I certify that, based on my findings, the following services are medically necessary home health services: My clinical findings support the need for the above services because: Further, I certify that my clinical findings support that this patient is homebound (i.e. absences from home require considerable and taxing effort and are for medical reasons or hoahaoism services or infrequently or of short duration when for other reasons) because: Certification for Home Health Services: Based on the above findings, I certify that this patient is confined to the home and needs intermittent halfway care, physical therapy and/or speech therapy or continues to need occupational therapy. The patient is under my care, and I have initiated the establishment of the plan of care. This patient will be followed by a physician who will periodically review the plan of care. Discharge Plan Discharge Items Reason For Visit: RT VISION LOSS, HTN EMERGENCY Follow-up/Referrals: BUFFY KENNEY [Primary Care Provider] - Medications and DC Order Prescriptions: No Action No Known Home Medications RF: 0 Admission Data Admit Date/Time: 04/21/21 12:44 Attending Provider: Leondies Todd Admit Provider: Paula Boswell Primary Care Provider: PCP,NO Other Providers: Mitchell Gandhi ; Luis F Yan ; French Wright ; Paula Boswell ; Karan Kolb
--- NOTE | 2021-04-22 10:47 | Critical Care Progress Note ---
Date of Service April 22, 2021 Assessment & Plan (1) Hypertensive emergency: Plan: (1) Hypertensive emergency: (2) Vision loss, right eye: (3) Elevated troponin: 65-year-old male with a past medical history of tobacco abuse presenting to the hospital due to hypertension and right vision loss Neurologic: Ophthalmology consult to evaluate vision loss. MRI brain imaging negative. Appreciate recommendations. Pulmonary: Saturating well on RA. Pulmonary edema seen on chest CT. History of smoking. Tobacco smoking cessation encouraged. Cardiovascular: Nicardipine drip d/c'd. Per cardiology: start on losartan and metoprolol tartrate. Hydralazine added q4h as needed for systolic pressures greater that 160. Cardiology getting repeat echo for reevaluation. Cardiology to continue to follow. Infrarenal abdominal aortic aneurysm seen on abdominal CT measuring 28mm Will need follow-up with vascular surgery as an outpatient. Pt HR is tachycardic at rest at 102 BPM at the time of examination--> starting metoprolol tartrate as above Elevated troponins on admission--> downtrending 7.17- 6.92 (04/21) Gastrointestinal: No issues. Regular diet. Renal: Hyponatremia resolved Infectious disease: No issues Hematologic: No issues Endocrine: TSH within normal limits VTE prophylaxis: SCD CODE STATUS: Full Family at bedside: None available at bedside Disposition: Downgrade to floor as pt has been transitioned to oral antihypertensives and is clinically stable. (2) Elevated troponin: (3) Aortic regurgitation: Admission and Anticipated Discharge Date Admission Date: April 21, 2021 Supervising Physician Co-Signing Physician Notes Patient seen and examined. EMR reviewed. Discussed on multidisciplinary rounds and with bedside critical care nurse as well as with family practice resident. Agree with assessment plan as noted above. Patient is had improvement in his hemodynamics. Reviewed with cardiology at bedside. Adjusting antihypertensive regimen and awaiting follow-up echocardiogram. No clear evidence of cardiac thrombus or valvular lesions to suggest embolic phenomenon accounting for the patient's acute vision changes but will await formal read. May require SHARMIN at some point. He has been off of Cardene for over 24 hours. Electrolyte abnormalities are stable. The patient can be transferred to the floor at this point in time. Critical care services will sign off. Feel free to contact us if we can be of additional assistance Subjective Patient seen at bedside this morning. No acute events reported overnight. Patient reports that his vision in his right eye is slightly better but baseline. Reports being able to see light but just blurry. Patient denies any chest pain or shortness of breath. Patient reports that other than his vision loss he is feeling well and has no complaints at this time. Review of Systems Review of Systems: All systems reviewed & are unremarkable except as noted in HPI & below Physical Exam Constitutional: WD/WN, vitals as above no acute distress Eyes: PERRL, conjunctivae normal, anicteric sclerae Neck: trachea midline, no thyromegaly Respiratory: normal respiratory effort, lungs clear to auscultation Cardiovascular: Rate/Rhythm: regular rhythm and + tachycardic Heart Sounds: + murmur (1/6 systolic murmur 2nd intercostal space on R sternal border) Vessels: no JVD Extremities: no calf tenderness and no edema Gastrointestinal (Abdomen): normal bowel sounds, soft, nontender, no hepatosplenomegaly Musculoskeletal: no cyanosis or clubbing, extremities motor strength 5/5 Skin: no rashes, warm and dry Neurologic: patellar DTR's 2+ bilat, sensation intact moves all extremities; no focal motor deficits Cranial Nerves: PERRL Psychiatric: A+Ox3, euthymic affect Results & Data Results & Data ([facility]) Vital Signs (Past 12 Hours) Vital Signs Temp Pulse Resp BP Pulse Ox 04/22/21 08:34 100 H 15 173/82 H 96 04/22/21 08:19 102 H 16 160/91 H 92 04/22/21 08:04 110 H 14 176/94 H 92 04/22/21 08:00 104 H 14 88 L 04/22/21 07:49 99 H 18 178/102 H 91 04/22/21 07:48 99 H 18 167/106 H 90 04/22/21 07:35 89 24 187/110 H 89 L 04/22/21 07:19 159/93 H 90 04/22/21 07:04 160/95 H 91 04/22/21 07:00 90 04/22/21 06:49 163/92 H 93 04/22/21 06:34 80 16 164/85 H 92 04/22/21 06:30 83 16 96 04/22/21 06:19 72 18 142/72 H 93 04/22/21 06:04 81 20 158/87 H 92 04/22/21 06:00 90 22 92 04/22/21 05:50 94 H 24 136/89 95 04/22/21 05:35 74 16 157/87 H 98 04/22/21 05:30 73 15 97 04/22/21 05:19 78 15 138/78 94 04/22/21 05:04 77 20 135/90 92 04/22/21 05:00 76 12 92 04/22/21 04:49 80 21 141/88 H 92 04/22/21 04:34 77 19 152/89 H 91 04/22/21 04:19 74 15 132/79 90 04/22/21 04:04 147/81 H 92 04/22/21 04:00 92 04/22/21 03:49 71 13 133/76 90 04/22/21 03:34 75 14 128/76 92 04/22/21 03:19 79 16 147/83 H 91 04/22/21 03:06 145/86 H 04/22/21 03:05 86 23 145/86 H 91 04/22/21 03:03 80 22 174/103 H 89 L 04/22/21 03:00 84 21 90 04/22/21 02:49 84 17 118/78 95 04/22/21 02:34 76 29 H 141/57 H 92 04/22/21 02:30 77 31 H 92 04/22/21 02:20 79 13 119/61 83 L 04/22/21 02:05 78 19 175/98 H 87 L 04/22/21 02:00 69 15 91 04/22/21 01:49 68 18 160/81 H 91 04/22/21 01:34 74 17 165/112 H 93 04/22/21 01:30 67 16 92 04/22/21 01:19 76 16 182/92 H 93 04/22/21 01:04 71 14 169/86 H 92 04/22/21 01:00 74 14 90 04/22/21 00:50 74 19 172/94 H 92 04/22/21 00:35 79 16 122/60 92 04/22/21 00:30 78 15 92 04/22/21 00:19 80 20 133/65 93 04/22/21 00:04 75 15 115/65 94 04/22/21 00:00 76 14 93 04/21/21 23:59 36.6 C 04/21/21 23:49 74 15 152/70 H 91 04/21/21 23:41 79 04/21/21 23:34 79 19 137/64 92 04/21/21 23:30 75 17 91 04/21/21 23:20 78 14 142/69 H 90 04/21/21 23:00 79 14 88 L 04/21/21 22:49 76 21 168/89 H 91 Resident Activity Tracking Resident Involvement: Resident Care Provided Care Provided: Adult Hospital Medicine
[2021-04-22] MEDS: ATORVASTATIN 10 MG TAB PO SCH (11:11)
--- NOTE | 2021-04-22 11:40 | Billing Data ---
Date of Service April 22, 2021 Coding Level of Care Code 16707 Subseq Hosp Care Lvl 2
[2021-04-22] MEDS: METOPROLOL TARTRATE 25 MG TAB PO SCH ×3 (12:10→20:06)
--- NOTE | 2021-04-22 13:53 | Hospitalist Progress Note ---
Date of Service April 22, 2021 Assessment & Plan (1) Vision loss, right eye: (2) Hypertensive emergency: (3) Elevated troponin: Plan: HTN Emergency Vision Loss, R eye ICU Metoprolol GOAL SBP 180, allow for permissive HTN in setting of ischemic CVA work up Further ischemic CVA w/u MRI pending - negative for CVA Echocardiogram:Moderate concentric LVH, asymmetric apical left ventricular hypertrophy, LVEF 66 5%, aortic valve is trileaflet, aortic valve is mildly calcified, mild aortic valve stenosis, grade 1 diastolic dysfunction, moderate to severe AR neurology to see Received ASA 325mg in ED, will start 81mg daily today Ophthalmology on case Elevated troponin pt with t wave inversions w/o CP trop of 7.17 likely in setting of demand ischemia Obtain echocardiogram Cycle trops Cardiology on caset Hyponatremia Na 130, likely chronic but unknown baseline Resolved Alcohol abuse drinks 3 beers/day thiamine, fa ordered AWSS prn protocol Infrarenal Abdominal Aortic Aneursym incidentally noted on CT a/p 2.8cm, will need OP follow up Tobacco abuse encourage cessation DVT ppx: SCD/TEDS for now, re assess in a.m. to initiate chemical ppx DISPO: ICU FULL CODE PCP: none ROS-No Headache, +Visual Changes, No Nausea, No Vomiting, No Fever, No Chills, N o Neck Pain or Stiffness, No Chest Pain, No Palpitations, No SOB, No OGLESBY, No Cough, No Sputum, No Wheezing, No Abdominal Pain, No Diarrhea, No Hematemesis, No Hemoptysis, No Unexpected Weight Loss, No Flank pain, No Melena, No Hematochezia, No Frequency, No Urgency, No Burning, No Hematuria, No Rashes, No Diaphoresis. Appetite is Normal Physical Exam Gen-AAO x 3, NAD, Afebrile Head-NCAT, EOMI, PERRLA, Anicteric Sclera, No Posterior Pharyngeal Erythema Neck-Supple, No JVD, No Thyromegaly, No Masses, No LAD, No Bruits Lungs-Clear to Auscultation Bilaterally, No Rales, No Rhonchi, No Wheezing, No Crepitus Chest-No S4, +S1, +S2, No S3, No Murmurs, No Rubs, No Gallops, No Ectopy Abdomen-Soft, Bowel Sounds Present, Non Tender, Non Distended, No Hepatomegaly, No Splenomegaly, No Palpable Masses, No Rebound, No Rigidity, No Guarding Musculoskeletal-Full Range of Motion Bilaterally, No CVAT Extremities-No Cyanosis, No Clubbing, No Edema Nuero-Cranial Nerves II-XII grossly intact, Motor WNL, DTRs WNL, Strength WNL, Non Focal Psych-Normal Mood Admission and Anticipated Discharge Date Admission Date: April 21, 2021 Subjective Patient seen, vision a little better, Ophth to see Results & Data Results & Data ([facility]) Vital Signs (Past 12 Hours) Vital Signs Temp Pulse Resp BP Pulse Ox 04/22/21 12:11 91 H 17 148/90 H 90 04/22/21 11:14 86 21 169/92 H 90 04/22/21 11:00 85 23 04/22/21 10:00 36.7 C 114 H 24 04/22/21 09:20 103 H 17 165/105 H 83 L 04/22/21 09:04 101 H 20 161/86 H 90 04/22/21 09:00 101 H 18 90 04/22/21 08:49 106 H 23 159/91 H 91 04/22/21 08:34 100 H 15 173/82 H 96 04/22/21 08:19 102 H 16 160/91 H 92 04/22/21 08:04 110 H 14 176/94 H 92 04/22/21 08:00 104 H 14 88 L 04/22/21 07:49 99 H 18 178/102 H 91 04/22/21 07:48 99 H 18 167/106 H 90 04/22/21 07:35 89 24 187/110 H 89 L 04/22/21 07:19 159/93 H 90 04/22/21 07:04 160/95 H 91 04/22/21 07:00 90 04/22/21 06:49 163/92 H 93 04/22/21 06:34 80 16 164/85 H 92 04/22/21 06:30 83 16 96 04/22/21 06:19 72 18 142/72 H 93 04/22/21 06:04 81 20 158/87 H 92 04/22/21 06:00 90 22 92 04/22/21 05:50 94 H 24 136/89 95 04/22/21 05:35 74 16 157/87 H 98 04/22/21 05:30 73 15 97 04/22/21 05:19 78 15 138/78 94 04/22/21 05:04 77 20 135/90 92 04/22/21 05:00 76 12 92 04/22/21 04:49 80 21 141/88 H 92 04/22/21 04:34 77 19 152/89 H 91 04/22/21 04:19 74 15 132/79 90 04/22/21 04:04 147/81 H 92 04/22/21 04:00 92 04/22/21 03:49 71 13 133/76 90 04/22/21 03:34 75 14 128/76 92 04/22/21 03:19 79 16 147/83 H 91 04/22/21 03:06 145/86 H 04/22/21 03:05 86 23 145/86 H 91 04/22/21 03:03 80 22 174/103 H 89 L 04/22/21 03:00 84 21 90 04/22/21 02:49 84 17 118/78 95 04/22/21 02:34 76 29 H 141/57 H 92 04/22/21 02:30 77 31 H 92 04/22/21 02:20 79 13 119/61 83 L 04/22/21 02:05 78 19 175/98 H 87 L 04/22/21 02:00 69 15 91 04/22/21 01:49 68 18 160/81 H 91 Laboratory Results Current Diagnoses Unqualified visual loss, right eye, normal vision left eye (04/21/21) Hypertensive emergency (04/21/21) Nonrheumatic aortic (valve) insufficiency (04/21/21) Other specified abnormalities of plasma proteins (04/21/21) Abnormal electrocardiogram [ECG] [EKG] (04/21/21) Allergies No Known Allergies Allergy (Unverified 12/11/11 09:54) Height/Weight/Isolation Height 6 ft 1 in Weight 101.7 kg Chemistry 04/21/21 04/22/21 11:06 04:28 Sodium 130 L 137 Potassium 4.5 4.0 Chloride 102 106 Carbon Dioxide 21 24 Anion Gap 7 7 BUN 11 11 Creatinine 0.73 0.71 Glucose 126 H 105 H Urinalysis 04/21/21 12:00 Urine Color Yellow Urine Appearance Clear Urine pH 7.0 Ur Specific [place] > 1.045 H Urine Protein Negative Urine Glucose (UA) Negative Urine Ketones Negative Urine Blood Trace H Urine Nitrite Negative Urine Bilirubin Negative
--- NOTE | 2021-04-22 16:41 | Communication Note ---
Date of Service: April 22, 2021 Aneesh is 65 years old is right-handed does not seek medical care on a regular basis and probably has longstanding untreated hypertension but was admitted yesterday after he awakened in the morning with loss of vision in the right eye which was not complete but involves central vision to the point he could not read, and could make out vague objects at a distance. It is difficult for him to actually draws a visual field loss. He had no headache no pain with eye movement there was no contralateral visual loss but he apparently was told to come to the emergency room for evaluation and was admitted as a possible stroke with the neurology consultation being requested. On admission he was found to be markedly hypertensive and subsequent evaluation with echocardiograph MRI CTAs etc. have revealed evidence for aortic regurgitation, and elevated troponin, and abnormal EKG, and MRI showing white matter changes likely due to small vessel disease, and CT angiography showing some vertebral artery stenoses but nothing else of significance I had suggested that he have a sed rate obtained but cannot locate a value on her chart Upon review of the history I suggested that he needed an ophthalmology consult but this is pending Exam today reveals blood pressure 159/85 pulse 84 respirations are 13 he is afebrile has an O2 saturation 90% is awake alert oriented in 3 spheres has normal eye movements but his acuity in the right eye is reduced to an estimated 20/100 or less. He cannot read print at a distance of 24 inches and he appears to have a significant scotoma involving the central james but is hard for me to map this out. Left eye function is normal. I think there is a right relative afferent pupillary defect. Facial motility and strength facial sensation speech are clear there is no tremor tics choreiform activity drift pronation sign strength testing is normal reflexes are fine there is no pathologic reflexes and sensation is normal This man certainly could have had a retinal stroke but we have no clear source of embolization other than aortic regurgitation which is a marginal cause. He has no symptoms suggestive of polymyalgia rheumatica or temporal arteritis but he does need sedimentation rate to exclude temporal arteritis which would be an unusual disorder present with acute visual loss and no other symptoms. This may be an anterior ischemic optic neuropathy of nonarteritic type but this requires ophthalmology to assess and it certainly could even be a central retinal vein occlusion which can also produce a similar pattern I do not think this is an idiopathic acute optic neuritis but again ophthalmology needs to assess this I agree with antiplatelet agents at this point but really until we have ophtha lmology assess his vision and do a reasonable exam of the retina we really do not have a diagnosis as the cause of his monocular visual loss In the interim he certainly needs his blood pressure control his vascular risk factors addressed and treated and needs to name a primary care physician for follow-up on an outpatient basis Neurology will revisit the bedside tomorrow Luis F Yan MD The above note was generated utilizing voice recognition technology and may have spelling errors punctuation errors pronoun usage errors and syntax errors
--- NOTE | 2021-04-22 21:25 | Electrocardiogram Report ---
Test Reason : Blood Pressure : / mmHG Vent. Rate : 084 BPM Atrial Rate : 084 BPM P-R Int : 174 ms QRS Dur : 078 ms QT Int : 378 ms P-R-T Axes : 071 039 165 degrees QTc Int : 446 ms Normal sinus rhythm Possible Left atrial enlargement Left ventricular hypertrophy T wave abnormality, consider inferior ischemia T wave abnormality, consider anterolateral ischemia Abnormal ECG When compared with ECG of 11-DEC-2011 11:21, T wave inversion now evident in Anterolateral leads Confirmed by Juan Spence ([id number]) on 04/22/2021 9:24:40 PM Referred By: REFERRED SELF Confirmed By:Juan Spence
--- NOTE | 2021-04-22 22:19 | Electrocardiogram Report ---
Test Reason : Blood Pressure : / mmHG Vent. Rate : 102 BPM Atrial Rate : 102 BPM P-R Int : 166 ms QRS Dur : 078 ms QT Int : 352 ms P-R-T Axes : 066 032 136 degrees QTc Int : 458 ms Poor data quality, interpretation may be adversely affected Sinus tachycardia Possible Left atrial enlargement T wave abnormality, consider lateral ischemia Abnormal ECG When compared with ECG of 11-DEC-2011 11:21, Nonspecific T wave abnormality, improved in Inferior leads T wave inversion now evident in Lateral leads Confirmed by Juan Spence ([id number]) on 04/22/2021 10:19:08 PM Referred By: REFERRED SELF Confirmed By:Juan Spence
[2021-04-23] MEDS: hydrALAZINE HCL 20 MG/ML VIAL IV PRN (04:43)
[2021-04-23 05:08] LABS: Basophils # (auto) 0.03 K/uL (0-0.2); Basophils % (auto) 0.4 %; Eosinophils # (auto) 0.11 K/uL (0-0.5); Eosinophils % (auto) 1.3 %; Hematocrit (blood only) 47.7 % (42-52); Hemoglobin 15.9 g/dL (14.0-18.0); Immature Granulocytes # (auto) 0.01 K/uL (0.00-0.02); Immature Granulocytes % (auto) 0.1 %; Lymphocytes # (auto) 2.04 K/uL (1.2-3.4); Mean Corpuscular Hemoglobin 31.5 pg (25-34); Mean Corpuscular Hgb Conc 33.3 g/dL (32-36); Mean Corpuscular Volume 94.5 fL (80-100); Mean Platelet Volume 9.4 fL (7.4-10.4); Neutrophils % (auto) 61.2 %; Platelet Count 164 K/uL (130-400); RDW Coefficient of Variation 14.5 % (11.5-14.5); RDW Standard Deviation 50.1 fL (36.4-46.3); Red Blood Count 5.05 M/uL (4.7-6.1); White Blood Count 8.49 K/uL (4.8-10.8)
[2021-04-23 05:38] LABS: Albumin Level 3.9 gm/dl (3.4-5.0); BUN Creatinine Ratio 28.4 (10-20); Bilirubin Direct 0.2 mg/dl (0-0.2); Bilirubin,Total 1.2 mg/dl (0.2-1.0); Calcium 8.7 mg/dl (8.5-10.1); Creatinine Clr Calc Pharmacy 126.4 ml/min; Est GFR (Non-African American) 97.5 ml/min; Phosphorus 3.7 mg/dl (2.5-4.9); Potassium 3.9 mmol/L (3.5-5.1); Total Protein 6.4 gm/dl (6.0-8.3)
[2021-04-23] MEDS: THIAMINE HCL 100 MG TAB PO SCH (08:32)
[2021-04-23] MEDS: FOLIC ACID 1 MG TAB PO SCH (08:32)
[2021-04-23] MEDS: METOPROLOL TARTRATE 25 MG TAB PO SCH ×2 (08:32→12:23)
[2021-04-23] MEDS: LOSARTAN POTASSIUM 25 MG TAB PO SCH (08:33)
[2021-04-23] MEDS: ATORVASTATIN 10 MG TAB PO SCH (08:33)
[2021-04-23] MEDS: ASPIRIN 81 MG ECTAB PO SCH (08:33)
--- NOTE | 2021-04-23 11:00 | Hospitalist Progress Note ---
Date of Service April 23, 2021 Assessment & Plan (1) Vision loss, right eye: (2) Hypertensive emergency: (3) Elevated troponin: Plan: HTN Emergency Vision Loss, R eye Tele Metoprolol Further ischemic CVA w/u MRI - negative for CVA Echocardiogram:Moderate concentric LVH, asymmetric apical left ventricular hypertrophy, LVEF 66 5%, aortic valve is trileaflet, aortic valve is mildly calcified, mild aortic valve stenosis, grade 1 diastolic dysfunction, moderate to severe AR neurology on case Received ASA 325mg in ED, will start 81mg daily today Ophthalmology to see Elevated troponin pt with t wave inversions w/o CP trop of 7.17 likely in setting of demand ischemia Echocardiogram done Cardiology on case Hyponatremia Na 130, likely chronic but unknown baseline Resolved Alcohol abuse drinks 3 beers/day thiamine, fa ordered AWSS prn protocol Infrarenal Abdominal Aortic Aneursym incidentally noted on CT a/p 2.8cm, will need OP follow up Tobacco abuse encourage cessation DVT ppx: SCD/TEDS for now, re assess in a.m. to initiate chemical ppx DISPO: ICU FULL CODE PCP: none ROS-No Headache, +Visual Changes, No Nausea, No Vomiting, No Fever, No Chills, No Neck Pain or Stiffness, No Chest Pain, No Palpitations, No SOB, No OGLESBY, No Cough, No Sputum, No Wheezing, No Abdominal Pain, No Diarrhea, No Hematemesis, No Hemoptysis, No Unexpected Weight Loss, No Flank pain, No Melena, No Hematochezia, No Frequency, No Urgency, No Burning, No Hematuria, No Rashes, No Diaphoresis. Appetite is Normal Physical Exam Gen-AAO x 3, NAD, Afebrile Head-NCAT, EOMI, PERRLA, Anicteric Sclera, No Posterior Pharyngeal Erythema Neck-Supple, No JVD, No Thyromegaly, No Masses, No LAD, No Bruits Lungs-Clear to Auscultation Bilaterally, No Rales, No Rhonchi, No Wheezing, No Crepitus Chest-No S4, +S1, +S2, No S3, No Murmurs, No Rubs, No Gallops, No Ectopy Abdomen-Soft, Bowel Sounds Present, Non Tender, Non Distended, No Hepatomegaly, No Splenomegaly, No Palpable Masses, No Rebound, No Rigidity, No Guarding Musculoskeletal-Full Range of Motion Bilaterally, No CVAT Extremities-No Cyanosis, No Clubbing, No Edema Nuero-Cranial Nerves II-XII grossly intact, Motor WNL, DTRs WNL, Strength WNL, Non Focal Psych-Normal Mood Admission and Anticipated Discharge Date Admission Date: April 21, 2021 Subjective Patient seen, vision a little better, Ophth to see Results & Data Results & Data ([facility]) Vital Signs (Past 12 Hours) Vital Signs Temp Pulse Pulse Resp BP BP Pulse Ox 04/23/21 08:00 92 H 90 15 166/83 H 94 04/23/21 04:36 36.5 C 79 17 174/94 H 93 04/23/21 00:00 36.5 C 76 16 151/94 H 93
--- NOTE | 2021-04-23 11:21 | Electrocardiogram Report ---
Test Reason : Blood Pressure : / mmHG Vent. Rate : 094 BPM Atrial Rate : 094 BPM P-R Int : 162 ms QRS Dur : 090 ms QT Int : 360 ms P-R-T Axes : 056 023 151 degrees QTc Int : 450 ms Sinus rhythm with Premature atrial complexes Minimal voltage criteria for LVH, may be normal variant T wave abnormality, consider inferior ischemia T wave abnormality, consider anterolateral ischemia Abnormal ECG When compared with ECG of 22-APR-2020 05:58, Premature atrial complexes are now Present Confirmed by Akash Mendoza ([id number] on 04/23/2021 11:20:46 AM Referred By: REFERRED SELF Confirmed By:Akash Mendoza
[2021-04-23] MEDS ORDERED: SPIRONOLACTONE 25 MG TAB PO SCH (14:15)
--- NOTE | 2021-04-23 14:17 | Cardiology Progress Note ---
Date of Service April 23, 2021 Assessment & Plan (1) Hypertensive emergency: (2) Elevated troponin: (3) Abnormal EKG: (4) Aortic regurgitation: Plan: (1) Hypertensive emergency with right sided visual impairment, Troponin elevation: -CTA, B/L vertebral artery stenosis MRI negative for stroke. -Titrate metoprolol tartrate to 50 mg twice daily -Titrate losartan to 25 mg twice daily -Add spironolactone 25 mg daily Repeat focused echocardiogram performed 04/22/2021 reveals severe concentric left ventricular hypertrophy, apex better visualized with the administration of sonic contrast, and does not appear compatible with asymmetric hypertrophy. (2) Elevated troponin / (3) Abnormal EKG: EKG this am with LVH by voltage criteria , evolved anterolateral T wave inversions. No clinical CHF, or symptoms of angina. No symptoms of angina. Defer ischemic work-up until after blood pressure optimized, and until after visual impairment felt to be stable. (4) Aortic regurgitation: At least moderate AR. Prep severe Optimize BP. Repeat TTecho / perhaps SHARMIN in a month for repeat assessment after BP improved. Admission and Anticipated Discharge Date Admission Date: April 21, 2021 Subjective Patient seen in cardiology follow-up. He remains in room 105 is a telemetry overflow. He is off of IV medication. Systolic blood pressures today running high again in the 170s. Denies chest discomfort or shortness of breath. Notes that although his right visual impairment is better than when he first came to the hospital, he really has not continue to improve, and it is about the same as what it was shortly after arrival. Telemetry reveals sinus rhythm. Physical Exam Constitutional: WD/WN, vitals as above no acute distress Respiratory: normal respiratory effort, lungs clear to auscultation Cardiovascular: Rate/Rhythm: regular rate, regular rhythm and + tachycardic Heart Sounds: + murmur (1/6 diastolic murmur) Extremities: no edema Gastrointestinal (Abdomen): normal bowel sounds, soft, nontender, no hepatosp lenomegaly Psychiatric: A+Ox3, euthymic affect Results & Data ([facility]) Vital Signs (Past 12 Hours) Vital Signs Temp Pulse Pulse Resp BP BP BP 04/23/21 12:00 36.7 C 89 18 172/81 H 159/96 H 04/23/21 08:00 92 H 90 15 166/83 H 04/23/21 04:36 36.5 C 79 17 174/94 H Pulse Ox 04/23/21 12:00 94 04/23/21 08:00 94 04/23/21 04:36 93 Laboratory Results Cardiac Enzymes 04/23/21 Range/Units 04:31 AST 31 (13-39) U/L CBC 04/23/21 Range/Units 04:31 WBC 8.49 (4.8-10.8) K/uL RBC 5.05 (4.7-6.1) M/uL Hgb 15.9 (14.0-18.0) g/dL Hct 47.7 (42-52) % Plt Count 164 (130-400) K/uL Neut # (Auto) 5.20 (1.4-6.5) K/uL Lymph # (Auto) 2.04 (1.2-3.4) K/uL [place] # (Auto) 1.10 H (0.11-0.59) K/uL Eos # (Auto) 0.11 (0-0.5) K/uL Baso # (Auto) 0.03 (0-0.2) K/uL Comprehensive Metabolic Panel 04/23/21 Range/Units 04:31 Sodium 137 (136-145) mmol/L Potassium 3.9 (3.5-5.1) mmol/L Chloride 108 H (98-107) mmol/L Carbon Dioxide 21 (21-32) mmol/L BUN 21 (6-23) mg/dl Creatinine 0.74 (0.6-1.4) mg/dl Glucose 92 (70-99(Fasting)) mg/dl Calcium 8.7 (8.5-10.1) mg/dl Direct Bilirubin 0.2 (0-0.2) mg/dl AST 31 (13-39) U/L ALT 28 (7-52) U/L Alkaline Phosphatase 39 (34-104) U/L Total Protein 6.4 (6.0-8.3) gm/dl Albumin 3.9 (3.4-5.0) gm/dl Intake and Output 04/22/21 04/23/21 04/23/21 22:59 06:59 14:59 Intake Total 415 / 415 Output Total Balance 414 / 414 Intake: Oral 415 / 415 Output: # Bowel Movements Other: # Unmeasured Voids 1
--- NOTE | 2021-04-23 15:03 | Communication Note ---
Date of Service: April 23, 2021 Sedimentation rate on right ankle is normal. Ophthalmology apparently never received a consultation and is going to see the patient today or perhaps mary orrow. At this point neurology really does not need to stay involved as the ultimate diagnosis of this man's monocular visual loss will reside in the antibody neurology and they feel neurology needs to follow-up we will be happy to do so At this point I am going to sign off the case we will arrange to have this course in our office in about 4 weeks or so to simply follow-up on the ultimate diagnosis can remain involved in his antiplatelet therapy for at least 1 visit. Again he needs to establish care with a primary care provider who can manage his vascular risk factors of hypertension and will probably need follow-up in ophthalmology depending on what is found may even need especially minimal follow-up was found to have a central retinal vein occlusion as a cause of all of this Luis F Yan MD
--- NOTE | 2021-04-23 15:47 | Discharge Summary ---
Date of Service April 23, 2021 Admission HPI Per Admitting Provider 65-year-old male who has no known's significant past medical history who has not followed with PCP for many years who presents to ED secondary to vision loss in his right eye starting at 7 AM. He was last known well approximately 10 PM last evening when he went to bed. He states he was reading and felt like his normal self. When he woke up at 7 AM he had inability to see out of his right eye, except for light. He has not seen a PCP in many years. He is unaware of any known medical problems and does not take any prescription medications. Currently he continues to complain of visual loss in his right eye although he can see some objects and light. He denies any blurriness or double vision. He denies any headache. He denies any dizziness or lightheadedness. He does complain of feeling off balance and having difficulty walking but feels this is related to his vision loss in his right eye. He states he called his manager pool this morning who encouraged him to come to ED. He denies any recent illness. He is fully vaccinated for COVID-19. He denies any fever, chills, sweats, lightheadedness, dizziness, chest pain, shortness of breath, palpitations, cough, hemoptysis, nausea, vomiting, abdominal pain. He is a daily smoker approximately 5 cigarettes. He also drinks 3 beers a day. He denies any known significant family history and his mother and father are both still alive and well. He denies any history of cancer or stroke. He is unaware of family has high blood pressure or diabetes. In ED patient presented with significant hypertensive emergency with systolic blood pressure of 259. Stroke alert was called. Given time window TPA was not advised. He underwent CT of head and neck which revealed bilateral vertebral artery stenosis but otherwise no acute abnormality. CT head was unremarkable. Initial lab work-up revealed a troponin of 7.17. His EKG revealed sinus tachycardia with T wave inversions laterally. Admission Exam Per Admitting Provider Physical exam revealed a WNWD man in NAD. Head is NC/AT, pupils are round and equal to light bilaterally. Funduscopic exam bilaterally is negative for papilledema. No carotid, abdominal or iliac bruits on auscultation. Cardiac exam reveals S1/2 heard without murmurs, gallops or rubs. There is no peripheral edema and extremities are warm and well-perfused. Lungs are clear to auscultation throughout. Abdomen is protuberant, soft, NTND. CN 2-12 intact, he is able to see how many fingers I am holding up with each eye covered separately. Visual acuity test pending. It appears his vision is starting to improve since this morning per his report. Principal Diagnosis Hypertensive Optic Neuropathy Monocular Blindness Discharge Exam See below Discharge Data Allergies Allergy/AdvReac Type Severity Reaction Status Date / Time No Known Allergies Allergy Unverified 12/11/11 09:54 Consultations 04/21/21 12:02 ED Decision to Admit Stat 04/21/21 12:45 Consult Physical Science Technician Routine 04/21/21 12:52 Consult Neurology Routine 04/21/21 13:07 Consult Cardiology Routine 04/21/21 16:57 Consult Ophthalmology Routine Ordered Studies 04/21/21 10:40 CT head/brain wo con Stat 04/21/21 10:44 CT angio head w con Stat CT angio neck with con Stat 04/21/21 12:16 MR brain wo con Stat 04/21/21 12:47 CT angio abdomen pelvis w con Stat CT angio chest dissec wo/w con Stat Current Diagnoses Unqualified visual loss, right eye, normal vision left eye (04/21/21) Hypertensive emergency (04/21/21) Nonrheumatic aortic (valve) insufficiency (04/21/21) Other specified abnormalities of plasma proteins (04/21/21) Abnormal electrocardiogram [ECG] [EKG] (04/21/21) Allergies No Known Allergies Allergy (Unverified 12/11/11 09:54) Height/Weight/Isolation Height 6 ft 1 in Weight 101.7 kg Chemistry 04/22/21 04/23/21 04:28 04:31 Sodium 137 137 Potassium 4.0 3.9 Chloride 106 108 H Carbon Dioxide 24 21 Anion Gap 7 8 BUN 11 21 Creatinine 0.71 0.74 Glucose 105 H 92 Hospital Course (1) Vision loss, right eye: (2) Hypertensive emergency: (3) Elevated troponin: HTN Emergency Vision Loss, R eye Tele Metoprolol, Losartan Further ischemic CVA w/u MRI - negative for CVA Echocardiogram:Moderate concentric LVH, asymmetric apical left ventricular hypertrophy, LVEF 66 5%, aortic valve is trileaflet, aortic valve is mildly calcified, mild aortic valve stenosis, grade 1 diastolic dysfunction, moderate to severe AR neurology on case Received ASA 325mg in ED, will start 81mg daily today Ophthalmology to see in the office or Thursday Dr Kolb Elevated troponin pt with t wave inversions w/o CP trop of 7.17 likely in setting of demand ischemia Echocardiogram done Cardiology on case Hyponatremia Na 130, likely chronic but unknown baseline Resolved Alcohol abuse drinks 3 beers/day thiamine, fa ordered AWSS prn protocol Infrarenal Abdominal Aortic Aneursym incidentally noted on CT a/p 2.8cm, will need OP follow up Tobacco abuse encourage cessation DVT ppx: SCD/TEDS for now, re assess in a.m. to initiate chemical ppx DISPO: Dc home and f/u c Neuro, Cards, PCP and Ophthalmology FULL CODE PCP: none ROS-No Headache, +Visual Changes, No Nausea, No Vomiting, No Fever, No Chills, No Neck Pain or Stiffness, No Chest Pain, No Palpitations, No SOB, No OGLESBY, No Cough, No Sputum, No Wheezing, No Abdominal Pain, No Diarrhea, No Hematemesis, No Hemoptysis, No Unexpected Weight Loss, No Flank pain, No Melena, No Hematochezia, No Frequency, No Urgency, No Burning, No Hematuria, No Rashes, No Diaphoresis. Appetite is Normal Physical Exam Gen-AAO x 3, NAD, Afebrile Head-NCAT, EOMI, PERRLA, Anicteric Sclera, No Posterior Pharyngeal Erythema Neck-Supple, No JVD, No Thyromegaly, No Masses, No LAD, No Bruits Lungs-Clear to Auscultation Bilaterally, No Rales, No Rhonchi, No Wheezing, No Crepitus Chest-No S4, +S1, +S2, No S3, No Murmurs, No Rubs, No Gallops, No Ectopy Abdomen-Soft, Bowel Sounds Present, Non Tender, Non Distended, No Hepatomegaly, No Splenomegaly, No Palpable Masses, No Rebound, No Rigidity, No Guarding Musculoskeletal-Full Range of Motion Bilaterally, No CVAT Extremities-No Cyanosis, No Clubbing, No Edema Nuero-Cranial Nerves II-XII grossly intact, Motor WNL, DTRs WNL, Strength WNL, Non Focal Psych-Normal Mood Total Time Total Time Spent Total Time Spent (In Minutes): 45 mins Total Time Includes: Examination of the Patient, Discharge Planning, Medication Reconciliation and Communication With Other Providers Discharge Plan Discharge Items Patient Disposition: Home - Self-Care Reason For Visit: RT VISION LOSS, HTN EMERGENCY Discharge Diagnosis: Hypertensive Optic Neuropathy Monocular Blindness Condition on Discharge: Good Activity: Resume your previous activity Lifting: Gradually increase as tolerated Bathing: No limitations Sexual Activity: When tolerated Exercise/Sports: Gradually increase as tolerated Driving/Machine Use: Resume 3 days after discharge Weightbearing: Full weightbearing Non-emergency contact: Primary Care Provider, Specialist, Home Security Alarm Installer and Neurologist Call non-emergency contact if: you have any medication questions Follow-up/Referrals: French Wright DO [Home Security Alarm Installer] - (Call for first opening, blood pressure control) Luis F Yan MD [Physician] - (Call for first opening, need to set outpatient ambulatory EEG) Karan Kolb DO [Physician] - (Call today, tell them you're a hospital discharge and they said they'd see you or Thursday) PCP,NO [Primary Care Provider] - Diet: Heart Healthy Addtl Attending Provider Instructions: none Pending Studies at Discharge: No Stand-Alone Forms: My [employer], Smoking Cessation Medications and DC Order Prescriptions: New atorvastatin 10 mg Tablet 10 mg PO QAM Qty: 30 RF: 0 thiamine HCl (vitamin B1) 100 mg Tablet 100 mg PO QAM Qty: 30 RF: 0 aspirin 81 mg Tablet,Delayed Release (Dr/Ec) 81 mg PO QAM Qty: 30 RF: 0 spironolactone 25 mg Tablet 25 mg PO QAM Qty: 30 RF: 0 losartan 25 mg Tablet 25 mg PO BID Qty: 60 RF: 0 metoprolol tartrate 50 mg Tablet 50 mg PO BID Qty: 60 RF: 0 folic acid 1 mg Tablet 1 mg PO QAM Qty: 30 RF: 0 Discharge Orders: Discharge Order (Routine); Ordered 04/23/21 Ordered By: Leonides Todd Admission Data Admit Date/Time: 04/21/21 12:44 Attending Provider: Leonides Todd Admit Provider: Paula Boswell Primary Care Provider: PCP,NO Other Providers: Paula Boswell ; Karan Kolb Vyacheslav ; Luis F Yan ; French Wright
[2021-04-23] MEDS ORDERED: STROKE PATIENT DISCHARGE STA (15:49)
[2021-04-23] MEDS ORDERED: METOPROLOL TARTRATE 50 MG TAB PO SCH (21:00)
[2021-04-23] MEDS ORDERED: LOSARTAN POTASSIUM 25 MG TAB PO SCH (21:00)
== END 2021-04-23 16:41 | disposition home or self-care (01) | DRG 305 ==
LOC: ED 10:34 → 1E 12:44 → SUATTDRO 12:44 → 1E 14:08 → 2N 04-23 15:25